=== PATIENT | male | born 1960 | race Caucasian/White ===

== ENCOUNTER 2017-08-12 06:59 | Day surgery (SDC) | payer OTHER ==
[~2017-08-12] VITALS: Ht 180.3 cm; Wt 120.2 kg
[2017-08-12] VITALS (9 sets, daily range): BP systolic 107–145; BP diastolic 68–104
[~2017-08-12 06:59] MED LIST: ASPI-999 PO; GUAI1TAB PO; HYDR-3583 PO; METO-354 PO; OMEP-10 PO; SCP1.5TD TD
[2017-08-12] MEDS ORDERED: NS IV 1000 ML 1,000 ML ONE (07:12)
[2017-08-12] MEDS ORDERED: LIDOCAINE 2% VISCOUS 15 ML UDC ONE (07:12)
--- OUTSIDE RECORDS SUMMARY | 2017-08-12 07:14 | XMS REPORT | Continuity of Care Document ---
Author Author [facility] Organization [facility] Address Unknown Phone Unavailable Care Team Providers Care Landscape Architect And Planner Name Role Phone [employer] Unavailable Unavailable Problems Medications Allergies, Adverse Reactions, Alerts Immunizations Results Vital Signs Encounters Procedures Plan of Care Social History Assessment and Plan Family History Value Date Source Advance Directives Order Name Results Value Date Source
--- OUTSIDE RECORDS SUMMARY | 2017-08-12 07:15 | XMS REPORT | Continuity of Care Document ---
Author Author [facility] Organization [facility] Address Unknown Phone Unavailable Allergies Active Description Code Type Severity Reaction Onset Reported/Identified Relationship to Patient Clinical Status Yes No Known Drug Allergies [id number] Drug Allergy Unknown N/ A 05/02/2010 Medications Problems Date Dx Coded Attending Type Code Diagnosis Diagnosed By 05/10/2010 Ot 493.90 05/10/2010 Ot 560.1 05/10/2010 Ot 560.39 05/10/2010 Ot 560.81 05/10/2010 Ot 790.6 05/10/2010 Ot V64.41 01/10/2015 Ot 784.2 01/10/2015 AMANDA RUIZ, ISABELLA Kim Ot 780.54 10/16/2015 Ot 784.2 10/16/2015 AMANDA RUIZ, ISABELLA Kim Ot 780.54 10/17/2015 VIRGILIO RUIZ, CHEIKH R Ot G47.30 10/17/2015 VIRGILIO RUIZ, CHEIKH R Ot R00.2 10/17/2015 VIRGILIO RUIZ, CHEIKH R Ot R07.89 10/17/2015 VIRGILIO RUIZ, CHEIKH R Ot Z82.49 01/04/2016 SKYLAR MCCULLOUGH DO Ot G47.33 OBSTRUCTIVE SLEEP APNEA (ADULT) (PEDIATR 01/11/2016 SKYLAR MCCULLOUGH DO Ot G47.33 OBSTRUCTIVE SLEEP APNEA (ADULT) (PEDIATR Procedures Results Encounters ACCT No. Visit Date/Time Discharge Status Pt. Type Provider Facility Loc./Unit Complaint [id number] 01/03/2016 19:59:00 2015 06:15:00 DIS Outpatient SKYLAR MCCULLOUGH DO [facility] SLEEP [id number] 03/04/2013 18:04:00 2012 23:59:59 CLS Outpatient ISABELLA PATEL MD [facility] SLEEP [id number] 08/12/2017 09:00:00 PEN Preadmit SANTINO RUIZ FACLUCA Garcia FACP CCDS [facility] CATH ATRIAL FIBRILLATION;CHRONIC ANTICOAGULATION;NATHALIA [id number] 10/16/2015 12:04:00 ACT Inpatient CHEIKH POOLE MD [facility] CSD [id number] 01/10/2015 17:52:00 Document Registration [id number] 02/25/2011 07:48:00 Document Registration [id number] 05/02/2010 02:01:00 Document Registration
[2017-08-12 07:31] LABS: MEAN PLATELET VOLUME 9.6 FL (7.4-10.4); RED BLOOD COUNT 5.42 10^6/uL (4.35-5.85); RED CELL DISTRIBUTION WIDTH 12.8 % (10.0-14.5); WHITE BLOOD COUNT 7.4 10^3/uL (4.3-11.0)
[2017-08-12] MEDS ORDERED: DILT240C86 PO (07:35)
[2017-08-12] MEDS ORDERED: APIX5TAB PO (07:35)
[2017-08-12 07:41] LABS: PROTHROMBIN TIME PATIENT 13.2 SEC (12.2-14.7)
[2017-08-12] MEDS ORDERED: NS IV 1000 ML 1,000 ML IV SCH (07:45)
[2017-08-12 07:51] LABS: ALBUMIN 4.2 GM/DL (3.2-4.5); BILIRUBIN,TOTAL 0.7 MG/DL (0.1-1.0); CALCIUM 9.4 MG/DL (8.5-10.1); CREATININE SERUM 1.25 MG/DL (0.60-1.30); POTASSIUM 4.3 MMOL/L (3.6-5.0); TOTAL PROTEIN 6.9 GM/DL (6.4-8.2)
[2017-08-12] MEDS ORDERED: proPOfol 200 MG/20 ML (DIPRIVAN) VIAL IV ONE (08:07)
[2017-08-12] MEDS ORDERED: fentaNYL INJECTION 100 MCG/2 ML AMP ONE (08:07)
[2017-08-12] MEDS ORDERED: MIDAZOLAM 2 MG/2 ML (VERSED) VIAL ONE (08:08)
[2017-08-12] MEDS ORDERED: INFLUENZA TRIvalent 2017-2018 0.5 ML/45 MCG SYR IM ONE (08:15)
--- NOTE | 2017-08-12 08:48 | Cardiac Procedure Note-CS/ASA ---
Pre-Procedure Note Pre-Op Procedure Note H&P Reviewed The H&P was reviewed, patient examined and no changes noted. Date H&P Reviewed: Aug 12, 2017 Time H&P Reviewed: 08:48 Conscious Sedation Pre-Proced Time Reviewed: 08:48 ASA Class: 2 Airway Mallampati Classification: ([place] appropriate class) I. II. III, IV Lungs Heart ASA score ASA 1: a normal healthy patient ASA 2: a patient with a mild systemic disease (mid diabetes, controlled hypertension, obesity ASA 3: a patient with a severe systemic disease that limits activity (angina , COPD, prior Myocardial infarction) ASA 4: a patient with an incapacitating disease that is a constant threat to life (CHF, renal failure) ASA 5: a moribund patient not expected to survive 24 hrs. (ruptured aneurysm) ASA 6: a declared brain patient whose organs are being harvested. For emergent operations, add the letter E after the classification Grade 2 Sedation Plan: Analgesia, Amnesia, Plan communicated to team members, Discussed options with patient/fam, Discussed risks with patient/fam Note The patient is an appropriate candidate to undergo the planned procedure, sedation, and anesthesia. The patient immediately re-assessed prior to indication. LUCA DE MD FACP FAC CCDS Aug 12, 2017 08:48
[2017-08-12] MEDS ORDERED: PROP225C6 PO (09:30)
--- NOTE | 2017-08-12 09:32 | Progress Note-Standard ---
Standard Progress Note Progress Notes/Assess & Plan Date Seen by Provider: Aug 12, 2017 Time Seen by Provider: 09:00 Progress/Assessment & Plan consult for TONYA/ Cardioversion. pt npo> midnight. 110 mg propofol and 2 mg versed. pt tolerated procedure well. start 0900 end [id number] REGINA CORONA CRNA Aug 12, 2017 09:32
--- NOTE | 2017-08-12 09:32 | Discharge Inst-Cardiology ---
Discharge Inst-Cardiac Discharge Medications New Medications: Propafenone HCl (Propafenone HCl ER) 225 Mg Cap 225 MG PO BID, #60 CAP 5 Refills Continued Medications: Apixaban (Eliquis) 5 Mg Tablet 5 MG PO BID, TAB Diltiazem HCl (Cardizem Cd) 240 Mg Cap.er.24h 240 MG PO DAILY, CAP Discontinued Medications: Guaifenesin/Ephedrine HCl (Primatene Asthma Tablet) 1 Each Tablet 2 TAB PO BID Patient Instructions Patient Instructions: F/u with Dr Jose on 08/15/17 F/u with Dr Rodriguez re: asthma KARINA Orders-Post D/C & Referrals Pneu Vac Indicated: Yes LUCA JOSE MD FACP FAC CCDS Aug 12, 2017 09:32
--- NOTE | 2017-08-12 13:27 | OPERATIVE REPORT ---
DATE OF SERVICE: 08/12/2017 PREOPERATIVE DIAGNOSIS: Atrial fibrillation. POSTOPERATIVE DIAGNOSIS: Atrial fibrillation. PROCEDURE: External electrical cardioversion. [facility] Informed consent was obtained for transesophageal echocardiography and subsequent electrical cardioversion. Transesophageal echocardiography is reported separately. It did not indicate any significant intracardiac thrombus. Subsequently, the nurse journeyman welder administered short acting anesthesia under which we carried out electrical cardioversion. Three successive shocks given a few minutes apart were unsuccessful. The shocks were 120 joules, 150 joules, 200 joules. We also tried changing the position of the pads, but were not able to restore sinus rhythm. The patient continued to maintain atrial fibrillation. No other arrhythmia was seen. Job ID: [id number] DocumentID: [id number] Dictated Date: 08/12/2017 09:40:47 Corporate Director Date: 08/12/2017 13:27:10 Dictated By: LUCA DE MD, MA, FACP, FACC,
== END 2017-08-12 10:03 | disposition home or self-care (01) ==
LOC: CATH 06:59
PROVIDERS: ATTEND Internal Medicine Cardiovascular Disease
DX: I48.0 Paroxysmal atrial fibrillation (principal); Z79.899 Other long term (current) drug therapy; G47.33 Obstructive sleep apnea (adult) (pediatric); R06.83 Snoring
CPT/HCPCS: 36415; 80053; 80061; 85027; 85610; 85730; 87081; 92960; 93005; 93312; 93320; 93325

== ENCOUNTER 2017-08-26 07:02 | Day surgery (SDC) | payer OTHER ==
[~2017-08-26] VITALS: Ht 180.3 cm; Wt 120.2 kg
[2017-08-26] VITALS (9 sets, daily range): BP systolic 117–137; BP diastolic 72–112
[~2017-08-26 07:02] MED LIST changes: +APIX5TAB PO; +DILT240C86 PO; +PROP225C6 PO
--- OUTSIDE RECORDS SUMMARY | 2017-08-26 07:05 | XMS REPORT | Continuity of Care Document ---
Author Author [employer] Organization [facility] Address Unknown Phone Unavailable Care Team Providers Care Chummer Name Role Phone [employer] Unavailable Unavailable Problems Medications Allergies, Adverse Reactions, Alerts Immunizations Results Vital Signs Encounters Procedures Plan of Care Social History Assessment and Plan Family History Value Date Source Advance Directives Order Name Results Value Date Source
--- OUTSIDE RECORDS SUMMARY | 2017-08-26 07:05 | XMS REPORT | Continuity of Care Document ---
Author Author [facility] Organization [facility] Address Unknown Phone Unavailable Allergies Active Description Code Type Severity Reaction Onset Reported/Identified Relationship to Patient Clinical Status Yes No Known Drug Allergies [id number] Drug Allergy Unknown N/A 05/02/2010 Medications There is no data. Problems Date Dx Coded Attending Type Code Diagnosis Diagnosed By 05/10/2010 Ot 493.90 05/10/2010 Ot 560.1 05/10/2010 Ot 560.39 05/10/2010 Ot 560.81 05/10/2010 Ot 790.6 05/10/2010 Ot V64.41 01/10/2015 Ot 784.2 01/10/2015 AMANDA RUIZ, ISABELLA Kim Ot 780.54 10/16/2015 Ot 784.2 10/16/2015 ISABELLA PATEL MD Ot 780.54 10/17/2015 VIRGILIO RUIZ, CHEIKH R Ot G47.30 SLEEP APNEA, UNSPECIFIED 10/17/2015 VIRGILIO RUIZ, CHEIKH R Ot R00.2 PALPITATIONS 10/17/2015 VIRGILIO RUIZ, CHEIKH R Ot R07.89 OTHER CHEST PAIN 10/17/2015 VIRGILIO RUIZ, CHEIKH R Ot Z82.49 FAMILY HX OF ISCHEM HEART DIS AND OTH DI 01/04/2016 SKYLAR MCCULLOUGH DO Ot G47.33 OBSTRUCTIVE SLEEP APNEA (ADULT) (PEDIATR 01/11/2016 SKYLAR MCCULLOUGH DO Ot G47.33 OBSTRUCTIVE SLEEP APNEA (ADULT) (PEDIATR 08/18/2017 SANTINO RUIZ FACC, LUCA ORTEGAP CCDS Ot G47.33 OBSTRUCTIVE SLEEP APNEA (ADULT) (PEDIATR 08/18/2017 SANTINO RUIZ FACC, LUCA ORTEGAP CCDS Ot I48.0 PAROXYSMAL ATRIAL FIBRILLATION 08/18/2017 SANTINO RUIZ FACC, LUCA ORTEGAP CCDS Ot R06.83 SNORING 08/18/2017 SANTINO RUIZ FACC, LUCA ORTEGAP CCDS Ot Z79.899 OTHER [facility] (CURRENT) DRUG THERAPY Procedures There is no data. Results Test Result Range Automated blood complete blood count (hemogram) panel - 08/12/17 07:24 Blood leukocytes automated count (number/volume) 7.4 10*3/uL 4.3-11.0 Blood erythrocytes automated count (number/volume) 5.42 10*6/uL 4.35-5.85 Venous blood hemoglobin measurement (mass/volume) 17.1 g/dL 13.3-17.7 Blood hematocrit (volume fraction) 49 % 40-54 Automated erythrocyte mean corpuscular volume 91 [foz_us] 80-99 Automated erythrocyte mean corpuscular hemoglobin (mass per erythrocyte) 32 pg 25-34 Automated erythrocyte mean corpuscular hemoglobin concentration measurement ( mass/volume) 35 g/dL 32-36 Automated erythrocyte distribution width ratio 12.8 % 10.0-14.5 Automated blood platelet count (count/volume) 204 10*3/uL 130-400 Automated blood platelet mean volume measurement 9.6 [foz_us] 7.4-10.4 PT panel in platelet poor plasma by coagulation assay - 08/12/17 07:24 Prothrombin time (PT) in platelet poor plasma by coagulation assay 13.2 s 12.2-14.7 INR in platelet poor plasma or blood by coagulation assay 1.0 0.8-1.4 Activated partial thromboplastin time (aPTT) in platelet poor plasma bycoagulation assay - 08/12/17 07:24 Activated partial thromboplastin time (aPTT) in platelet poor plasma bycoagulation assay 34 s 24-35 Comprehensive metabolic panel - 08/12/17 07:24 Serum or plasma sodium measurement (moles/volume) 140 mmol/L 135-145 Serum or plasma potassium measurement (moles/volume) 4.3 mmol/L 3.6-5.0 Serum or plasma chloride measurement (moles/volume) 104 mmol/L 98-107 Carbon dioxide 27 mmol/L 21-32 Serum or plasma anion gap determination (moles/volume) 9 mmol/L 5-14 Serum or plasma urea nitrogen measurement (mass/volume) 20 mg/dL 7-18 Serum or plasma creatinine measurement (mass/volume) 1.25 mg/dL 0.60-1.30 Serum or plasma urea nitrogen/creatinine mass ratio 16 NRG Serum or plasma creatinine measurement with calculation of estimated glomerular filtration rate 60 NRG Serum or plasma glucose measurement (mass/volume) 131 mg/dL 70-105 Serum or plasma calcium measurement (mass/volume) 9.4 mg/dL 8.5-10.1 Serum or plasma total bilirubin measurement (mass/volume) 0.7 mg/dL 0.1-1.0 Serum or plasma alkaline phosphatase measurement (enzymatic activity/volume) 80 U/L 40-136 Serum or plasma aspartate aminotransferase measurement (enzymatic activity/ volume) 19 U/L 5-34 Serum or plasma alanine aminotransferase measurement (enzymatic activity/volume ) 25 U/L 0-55 Serum or plasma protein measurement (mass/volume) 6.9 g/dL 6.4-8.2 Serum or plasma albumin measurement (mass/volume) 4.2 g/dL 3.2-4.5 Lipid 1996 panel - 08/12/17 07:24 Serum or plasma triglyceride measurement (mass/volume) 109 mg/dL <150 Serum or plasma cholesterol measurement (mass/volume) 162 mg/dL < 200 Serum or plasma cholesterol in HDL measurement (mass/volume) 45 mg/ dL 40-60 Cholesterol in LDL [mass/volume] in serum or plasma by direct assay 97 mg/dL 1-129 Serum or plasma cholesterol in VLDL measurement (mass/volume) 22 mg/ dL 5-40 Methicillin resistant Staphylococcus aureus (MRSA) screening culture - 07:24 Methicillin resistant Staphylococcus aureus (MRSA) screening culture NEG NRG Encounters ACCT No. Visit Date/Time Discharge Status Pt. Type Provider Facility Loc./Unit Complaint [id number] 08/21/2017 08:41:00 08/21/2017 23:59:59 CLS Preadmit SOL BEVERLY DO [facility] RAD M81.0 [id number] 08/12/2017 06:59:00 08/12/2017 10:03:00 DIS Outpatient SANTINO RUIZ FACC, LUCA FRASER CCDS [facility] CATH ATRIAL FIBRILLATION;CHRONIC ANTICOAGULATION;NATHALIA [id number] 01/03/2016 19:59:00 01/04/2016 06:15:00 DIS Outpatient SKYLAR MCCULLOUGH DO [facility] SLEEP SNORING,EXCESSIVE SLEEPINESS, [id number] 03/04/2013 18:04:00 03/04/2013 23:59:59 CLS Outpatient AMANDA RUIZ, ISABELLA Kim [facility] SLEEP [id number] 08/26/2017 07:02:00 ACT Outpatient SANTINO RUIZ FACC, LUCA FRASER CCDS [facility] CATH SOB,HTN,OBESITY [id number] 10/16/2015 12:04:00 ACT Inpatient VIRGILIO RUIZ, CHEIKH Sutton [facility] CSD CHEST PAIN [id number] 01/10/2015 17:52:00 Document Registration [id number] 02/25/2011 07:48:00 Document Registration [id number] 05/02/2010 02:01:00 Document Registration
[2017-08-26] MEDS ORDERED: NS IV 1000 ML 1,000 ML ONE (07:08)
[2017-08-26 07:27] LABS: MEAN PLATELET VOLUME 9.8 FL (7.4-10.4); RED BLOOD COUNT 5.58 10^6/uL (4.35-5.85); RED CELL DISTRIBUTION WIDTH 12.9 % (10.0-14.5); WHITE BLOOD COUNT 8.3 10^3/uL (4.3-11.0)
[2017-08-26] MEDS ORDERED: NS IV 1000 ML 1,000 ML IV SCH (07:30)
[2017-08-26 07:37] LABS: PROTHROMBIN TIME PATIENT 13.6 SEC (12.2-14.7)
[2017-08-26 07:47] LABS: ALANINE AMINOTRANSFERASE 27 U/L (0-55); ALBUMIN 4.4 GM/DL (3.2-4.5); ANION GAP 10 MMOL/L (5-14); ASPARTATE AMINO TRANSFERASE 21 U/L (5-34); BILIRUBIN,TOTAL 0.6 MG/DL (0.1-1.0); BLOOD UREA NITROGEN 20 MG/DL (7-18); BUN/CREATININE RATIO 17; CARBON DIOXIDE 24 MMOL/L (21-32); CHLORIDE 104 MMOL/L (98-107); CHOLESTEROL 177 MG/DL (< 200); CREATININE SERUM 1.17 MG/DL (0.60-1.30); DIRECT LDL 110 MG/DL (1-129); GFR ESTIMATED > 60; GLUCOSE 133 MG/DL (70-105); POTASSIUM 4.3 MMOL/L (3.6-5.0); SODIUM 138 MMOL/L (135-145); TOTAL PROTEIN 7.2 GM/DL (6.4-8.2); TRIGLYCERIDES 129 MG/DL (<150); VLDL CHOLESTEROL 26 MG/DL (5-40)
[2017-08-26] MEDS ORDERED: MIDAZOLAM 2 MG/2 ML (VERSED) VIAL ONE (08:12)
[2017-08-26] MEDS ORDERED: proPOfol 200 MG/20 ML (DIPRIVAN) VIAL IV ONE ×2 (08:12→08:13)
[2017-08-26] MEDS ORDERED: MIDAZOLAM 5 MG/5 ML (VERSED) VIAL ONE (08:13)
[2017-08-26] MEDS ORDERED: fentaNYL INJECTION 100 MCG/2 ML AMP ONE (08:13)
[2017-08-26] MEDS ORDERED: INFLUENZA TRIvalent 2017-2018 0.5 ML/45 MCG SYR IM ONE (08:30)
[2017-08-26] MEDS ORDERED: PROP325C4 PO (09:21)
--- NOTE | 2017-08-26 13:27 | Cardiac Procedure Note-CS/ASA ---
Pre-Procedure Note Pre-Op Procedure Note H&P Reviewed The H&P was reviewed, patient examined and no changes noted. Date H&P Reviewed: Aug 26, 2017 Time H&P Reviewed: 08:35 Conscious Sedation Pre-Proced Time Reviewed: 08:35 ASA Class: 2, 3 Airway Mallampati Classification: ([place] appropriate class) I. II. III, IV Lungs Heart ASA score ASA 1: a normal healthy patient ASA 2: a patient with a mild systemic disease (mid diabetes, controlled hypertension, obesity ASA 3: a patient with a severe systemic disease that limits activity (angina , COPD, prior Myocardial infarction) ASA 4: a patient with an incapacitating disease that is a constant threat to life (CHF, renal failure) ASA 5: a moribund patient not expected to survive 24 hrs. (ruptured aneurysm) ASA 6: a declared brain patient whose organs are being harvested. For emergent operations, add the letter E after the classification Grade 3 Sedation Plan: Analgesia, Amnesia, Plan communicated to team members, Discussed options with patient/fam, Discussed risks with patient/fam Note The patient is an appropriate candidate to undergo the planned procedure, sedation, and anesthesia. The patient immediately re-assessed prior to indication. LUCA DE MD FACP FAC CCDS Aug 26, 2017 13:27
--- NOTE | 2017-08-26 14:40 | OPERATIVE REPORT ---
DATE OF SERVICE: 08/26/2017 ELECTROCARDIOVERSION [facility] Short-acting anesthesia was administered by the anesthesiologist. We tried three synchronized shocks at 120 joules, 150 joules, 150 joules (with the change of orientation of the shocking pads), but we were unsuccessful in restoring sinus rhythm. The plan is to increase the dose of propafenone. He remains on oral anticoagulation without any interruption for several weeks and that has been continued. I have spoken with Dr. Dominguez of the electrophysiology service at [facility] regarding possible ablation. Dr. Dominguez will schedule the patient for evaluation of atrial fibrillation ablation. Job ID: [id number] DocumentID: [id number] Dictated Date: 08/26/2017 08:53:46 Tool Repair Technician Date: 08/26/2017 14:40:08 Dictated By: LUCA DE MD, MA, FACP, FACC, MTDD
--- NOTE | 2017-08-26 16:36 | Progress Note-Standard ---
Standard Progress Note Progress Notes/Assess & Plan Date Seen by Provider: Aug 26, 2017 Time Seen by Provider: 08:30 Progress/Assessment & Plan Anesthesia Note ([id number]) Called to lab animal technician for sedation (MAC) for cardioversion. Pt S/E. Versed 2 mg IV and Propofol 80 mg IV given in divided doses. VSS throughout and EtCO2 monitored throughout. Pt did not return to sinus rhythm after multiple cardioversion attempts.Pt tolerated the procedure well. Will be available if needed. STORMY HERNANDEZ DO Aug 26, 2017 16:36
== END 2017-08-26 09:54 | disposition home or self-care (01) ==
LOC: CATH 07:02
PROVIDERS: ATTEND Internal Medicine Cardiovascular Disease
DX: I47.2 Ventricular tachycardia (principal); I65.23 Occlusion and stenosis of bilateral carotid arteries; I25.10 Atherosclerotic heart disease of native coronary artery without angina pectoris; E78.4 Other hyperlipidemia
CPT/HCPCS: 36415; 80053; 80061; 85027; 85610; 85730; 87081; 92960; 93005

== ENCOUNTER 2017-09-04 07:06 | Day surgery (SDC) | payer OTHER ==
[~2017-09-04] VITALS: Ht 180.3 cm; Wt 120.2 kg
[~2017-09-04 07:06] MED LIST changes: +PROP325C4 PO
--- OUTSIDE RECORDS SUMMARY | 2017-09-04 07:11 | XMS REPORT | Encounter Summary ---
Author Author [facility] Organization [facility] Address Unknown Phone Unavailable Care Team Providers Care Mica Washer Gluer Name Role Phone PCP Unavailable Reason for Visit * Reason Comments Records Request Dr. Jessica Jose Encounter Details Date Type Department Care Team Description 08/26/2017 Documentation [facility] Cardiology Cristina Hines, CHARANJIT Records Request (Dr. Lopez [address] [facility] [address] Jose) [facility] [address] [place] [address] Social History Tobacco Use Types Packs/Day Years Used Date Never Assessed Sex Assigned at Date Recorded Not on file as of this encounter Progress Notes * Cristina Hines RN - 08/26/2017 9:53 AM CHEMICAL MAKER Request for the following medical records for purpose of continuity of care: Has an appointment with [facility] on 09/18/2016 Please send most recent OV note, EKGs and lab results. Please include ECHO, stress test, Holter monitor results with ECG strips and any other cardiac information / testing if available. Please also include facesheet and insurance information. Please Fax to: [facility] Cardiology - [phone] Dr. Dominguez Attention: Val Rodriguez RN Thank you in this encounter Plan of Treatment Not on fileas of this encounter Visit Diagnoses Not on filein this encounter
--- OUTSIDE RECORDS SUMMARY | 2017-09-04 07:11 | XMS REPORT | Encounter Summary ---
Author Author [facility] Organization [facility] Address Unknown Phone Unavailable Care Team Providers Care Art Educator Name Role Phone PCP Unavailable Reason for Visit * Reason Comments Referral Dr. Lemon referral to [facility] for AF Encounter Details Date Type Department Care Team Description 08/26/2017 Telephone [facility] Cardiology Kvng Dominguez MD Referral (Dr. Lemon [address] [facility] referral to [facility] for AF) [address] [place] [address] [place] [address] [phone] Social History Tobacco Use Types Packs/Day Years Used Date Never Assessed Sex Assigned at Date Recorded Not on file as of this encounter Miscellaneous Notes * Telephone Encounter - Cristina Hines RN - 08/26/2017 9:51 AM CONTINUITY PERSON Kolby Rea is a 56-year-old patient that was referred by Dr. Jessica Jose from [facility] who has a history of atrial fibrillation, sleep apnea, mild obesity. The duration of the patient's AFIB on presentation which was a few months ago is on now. Dr. Jose saw him for evaluation he initiated rate control and anticoagulation. He then pursued TONYA guided cardioversion. The patient had evangelical of sinus rhythm very briefly in the recurrence of AFIB. Dr. Jose initiated him on Rythmol (? 225 mg twice daily) and after 10 days proceeded with repeat cardioversion. Dr. Jose reported that for roughly a few seconds he had sinus rhythm and then again went back in atrial fibrillation. That prompted EP referral. Upon discussion with Dr. Jose today, 08/26/17, rather than switch to a different antiarrhythmic drug we decided to increase his Rythmol to 325 mg SR twice daily and repeat cardioversion again in 7-10 days later. I will also work in the patient for office visit either on 09/18 in the morning, 09/23 in the morning with a follow or if not in the afternoon, on the morning of 09/26. I informed Dr. Jose to let the patient know that all that we try and see his patients in the [place] office to get him worked in earlier he will need to be seen at the [facility] office. We will contact the patient today to hopefully schedule the appointment. The patient's phone number is [phone]. The patient's 's name is Jami and her phone number is [phone]. in this encounter Plan of Treatment Not on fileas of this encounter Visit Diagnoses Not on filein this encounter
--- OUTSIDE RECORDS SUMMARY | 2017-09-04 07:11 | XMS REPORT | Encounter Summary ---
Author Author [facility] Organization [facility] Address Unknown Phone Unavailable Care Team Providers Care Outsole Molder Name Role Phone PCP Unavailable Reason for Visit * Reason Comments Records Request Dr. Arturo Means Encounter Details Date Type Department Care Team Description 08/27/2017 Documentation [facility] Cardiology Cristina Hines, CHARANJIT Records Request ( [address]) [facility] [address] [place] [address] Social History Tobacco Use Types Packs/Day Years Used Date Never Assessed Sex Assigned at Date Recorded Not on file as of this encounter Progress Notes * Cristina Hines RN - 08/27/2017 9:44 AM TOBACCO WEIGHER Request for the following medical records for purpose of continuity of care: Has an appointment with [facility] on 09/18/16 Please send most recent OV note and labs. Please Fax to: [facility] - [phone] Dr. Dominguez Attention: Val Browne RN Thank you in this encounter Plan of Treatment Not on fileas of this encounter Visit Diagnoses Not on filein this encounter
--- OUTSIDE RECORDS SUMMARY | 2017-09-04 07:11 | XMS REPORT | Clinical Summary ---
Author Author [facility] Organization [facility] Address Unknown Phone Unavailable Care Team Providers Care Physical Laboratory Assistant Name Role Phone PCP Unavailable Source Comments Some departments are not documenting in the electronic medical record. If you do not see the information that you expected, contact Release of Information in the Health Information Management department at [phone] for further assistance in locating additional records.[facility] Allergies Not on File Current Medications Not on file Active Problems Not on file Encounters Date Type Specialty Care Team Description 08/27/2017 Documentation Cardiology Cristina Hines RN Records Request (Dr. Arturo Means) 08/26/2017 Documentation Cardiology Cristina Hines RN Records Request (Dr. Jessica Jose) 08/26/2017 Telephone Cardiology Cristina Hines RN Appointment Request (LM requesting CB) 08/26/2017 Telephone Cardiology Kvng Dominguez MD Referral (Dr. Lemon referral to E for AF) from Last 3 Months Social History Tobacco Use Types Packs/Day Years Used Date Never Assessed Sex Assigned at Date Recorded Not on file Last Filed Vital Signs Not on file Plan of Treatment Health Maintenance Due Date Last Done Comments HEPATITIS C SCREENING 1960 PHYSICAL (COMPREHENSIVE) 1967 EXAM PERTUSSIS VACCINE 1971 TETANUS VACCINE 1977 COLORECTAL CANCER 2010 SCREENING INFLUENZA VACCINE 04/08/2017 Results Not on filefrom Last 3 Months
--- OUTSIDE RECORDS SUMMARY | 2017-09-04 07:11 | XMS REPORT | Encounter Summary ---
Author Author [facility] Organization [facility] Address Unknown Phone Unavailable Care Team Providers Care Teacher Associate Name Role Phone PCP Unavailable Reason for Visit * Reason Comments Appointment Request LM requesting CB Encounter Details Date Type Department Care Team Description 08/26/2017 Telephone [facility] Cardiology Cristina Hines, CHARANJIT Appointment Request ([facility] [address] requesting CB) [address] [place] [address] Social History Tobacco Use Types Packs/Day Years Used Date Never Assessed Sex Assigned at Date Recorded Not on file as of this encounter Miscellaneous Notes * Telephone Encounter - Cristina Hines RN - 08/26/2017 9:52 AM BEATER ENGINEER HELPER [facility] requesting CB regarding referral to [facility]. 1.) OV scheduled with [facility] at on 09/18 at 1030. (if that does not work for patient, 09/23 in am or 09/26 at 1030 - OK if still available) 2.) PCP? 3.) Transfer to scheduling to provide additional info (address / insurance) in this encounter Plan of Treatment Not on fileas of this encounter Visit Diagnoses Not on filein this encounter
--- OUTSIDE RECORDS SUMMARY | 2017-09-04 07:12 | XMS REPORT | Continuity of Care Document ---
Author Author [facility] Organization [facility] Address Unknown Phone Unavailable Allergies Active Description Code Type Severity Reaction Onset Reported/Identified Relationship to Patient Clinical Status Yes No Known Drug Allergies [id number] Drug Allergy Unknown N/A 05/02/2010 Medications There [...] Ot G47.33 OBSTRUCTIVE SLEEP APNEA (ADULT) (PEDIATR 08/12/2017 SANTINO RUIZ FACC, LUCA FRASER CCDS Ot G47.33 OBSTRUCTIVE SLEEP APNEA (ADULT) (PEDIATR 08/12/2017 SANTINO RUIZ FACC, LUCA FRASER CCDS Ot I48.0 PAROXYSMAL ATRIAL FIBRILLATION 08/12/2017 SANTINO RUIZ FACC, LUCA FRASER CCDS Ot R06.83 SNORING 08/12/2017 SANTINO RUIZ FACC, LUCA ORTEGAP CCDS Ot Z79.899 OTHER FDC (CURRENT) DRUG THERAPY 08/18/2017 SANTINO RUIZ FACC, LUCA FRASER CCDS Ot G47.33 OBSTRUCTIVE SLEEP APNEA (ADULT) (PEDIATR 08/18/2017 SANTINO RUIZ FACC, LUCA FRASER CCDS Ot I48.0 PAROXYSMAL ATRIAL FIBRILLATION 08/18/2017 SANTINO RUIZ FACC, [facility] Ot R06.83 SNORING 08/18/2017 SANTINO RUIZ FACC, LUCA [facility] Ot Z79.899 OTHER INDEXER (CURRENT) DRUG THERAPY Procedures There is no [...] Staphylococcus aureus (MRSA) screening culture NEG NRG Automated blood complete blood count (hemogram) panel - 08/26/17 07:20 Blood leukocytes automated count (number/volume) 8.3 10*3/uL 4.3-11.0 Blood erythrocytes automated count (number/volume) 5.58 10*6/uL 4.35-5.85 Venous blood hemoglobin measurement (mass/volume) 17.6 g/dL 13.3-17.7 Blood hematocrit (volume fraction) 50 % 40-54 Automated erythrocyte mean corpuscular volume 89 [foz_us] 80-99 Automated erythrocyte mean corpuscular hemoglobin (mass per erythrocyte) 32 pg 25-34 Automated erythrocyte mean corpuscular hemoglobin concentration measurement ( mass/volume) 35 g/dL 32-36 Automated erythrocyte distribution width ratio 12.9 % 10.0-14.5 Automated blood platelet count (count/volume) 220 10*3/uL 130-400 Automated blood platelet mean volume measurement 9.8 [foz_us] 7.4-10.4 PT panel in platelet poor plasma by coagulation assay - 08/26/17 07:20 Prothrombin time (PT) in platelet poor plasma by coagulation assay 13.6 s 12.2-14.7 INR in platelet poor plasma or blood by coagulation assay 1.0 0.8-1.4 Activated partial thromboplastin time (aPTT) in platelet poor plasma bycoagulation assay - 08/26/17 07:20 Activated partial thromboplastin time (aPTT) in platelet poor plasma bycoagulation assay 33 s 24-35 Comprehensive metabolic panel - 08/26/17 07:20 Serum or plasma sodium measurement (moles/volume) 138 mmol/L 135-145 Serum or plasma potassium measurement (moles/volume) 4.3 mmol/L 3.6-5.0 Serum or plasma chloride measurement (moles/volume) 104 mmol/L 98-107 Carbon dioxide 24 mmol/L 21-32 Serum or plasma anion gap determination (moles/volume) 10 mmol/L 5-14 Serum or plasma urea nitrogen measurement (mass/volume) 20 mg/dL 7-18 Serum or plasma creatinine measurement (mass/volume) 1.17 mg/dL 0.60-1.30 Serum or plasma urea nitrogen/creatinine mass ratio 17 NRG Serum or plasma creatinine measurement with calculation of estimated glomerular filtration rate > NRG Serum or plasma glucose measurement (mass/volume) 133 mg/dL 70-105 Serum or plasma calcium measurement (mass/volume) 10.0 mg/dL 8.5-10.1 Serum or plasma total bilirubin measurement (mass/volume) 0.6 mg/dL 0.1-1.0 Serum or plasma alkaline phosphatase measurement (enzymatic activity/volume) 95 U/L 40-136 Serum or plasma aspartate aminotransferase measurement (enzymatic activity/ volume) 21 U/L 5-34 Serum or plasma alanine aminotransferase measurement (enzymatic activity/volume ) 27 U/L 0-55 Serum or plasma protein measurement (mass/volume) 7.2 g/dL 6.4-8.2 Serum or plasma albumin measurement (mass/volume) 4.4 g/dL 3.2-4.5 Lipid 1996 panel - 08/26/17 07:20 Serum or plasma triglyceride measurement (mass/volume) 129 mg/dL <150 Serum or plasma cholesterol measurement (mass/volume) 177 mg/dL < 200 Serum or plasma cholesterol in HDL measurement (mass/volume) 44 mg/ dL 40-60 Cholesterol in LDL [mass/volume] in serum or plasma by direct assay 110 mg/dL 1-129 Serum or plasma cholesterol in VLDL measurement (mass/volume) 26 mg/ dL 5-40 Methicillin resistant Staphylococcus aureus (MRSA) screening culture - 07:20 Methicillin resistant Staphylococcus aureus (MRSA) screening culture NEG NRG Encounters ACCT No. Visit Date/Time Discharge Status Pt. Type Provider Facility Loc./Unit Complaint [id number] 08/26/2017 07:02:00 08/26/2017 09:54:00 DIS Outpatient SANTINO RUIZ FACC, LUCA FRASER CCDS [facility] SOB,HTN, OBESITY [id number] 08/21/2017 08:41:00 08/21/2017 23:59:59 CLS Preadmit SOL BEVERLY DO [facility] RAD M81.0 [id number] 08/12/2017 06:59:00 08/12/2017 10:03:00 DIS Outpatient SANTINO RUIZ FACC, LUCA FRASER CCDS [facility] ATRIAL FIBRILLATION;CHRONIC ANTICOAGULATION;NATHALIA [id number] 01/03/2016 19:59:00 01/04/2016 06:15:00 DIS Outpatient SKYLAR MCCULLOUGH DO [facility] SLEEP SNORING,EXCESSIVE SLEEPINESS, [id number] 03/04/2013 18:04:00 03/04/2013 23:59:59 CLS Outpatient ISABELLA PTAEL MD [facility] SLEEP [id number] 09/04/2017 08:00:00 PEN Preadmit SANTINO RUIZ FACC, ALI FACP CCDS [facility] CATH AFIB,SOB,HTN [id number] 10/16/2015 12:04:00 ACT Inpatient VIRGILIO RUIZ, CHEIKH Sutton [facility] CSD CHEST PAIN [id number] 01/10/2015 17:52:00 Document Registration [id number] 02/25/2011 07:48:00 Document Registration [id number] 05/02/2010 02:01:00 Document Registration
[2017-09-04] MEDS ORDERED: NS IV 1000 ML 1,000 ML IV SCH (07:15)
[2017-09-04] MEDS ORDERED: FLUT1BLS IH (07:32)
[2017-09-04 07:33] LABS: HEMOGLOBIN 16.2 G/DL (13.3-17.7); MEAN PLATELET VOLUME 9.9 FL (7.4-10.4); RED BLOOD COUNT 5.12 10^6/uL (4.35-5.85)
[2017-09-04 07:46] LABS: INR 1.1 (0.8-1.4); PROTHROMBIN TIME PATIENT 14.1 SEC (12.2-14.7)
[2017-09-04 07:56] LABS: BUN/CREATININE RATIO 18; CARBON DIOXIDE 22 MMOL/L (21-32); CHLORIDE 106 MMOL/L (98-107); CREATININE SERUM 1.19 MG/DL (0.60-1.30); POTASSIUM 4.1 MMOL/L (3.6-5.0); SODIUM 139 MMOL/L (135-145)
[2017-09-04 07:57] LABS: ALANINE AMINOTRANSFERASE 28 U/L (0-55); ALBUMIN 4.1 GM/DL (3.2-4.5); ALKALINE PHOSPHATASE 87 U/L (40-136); BILIRUBIN,TOTAL 0.5 MG/DL (0.1-1.0); GFR ESTIMATED > 60; GLUCOSE 131 MG/DL (70-105); TOTAL PROTEIN 6.5 GM/DL (6.4-8.2)
[2017-09-04] MEDS ORDERED: MIDAZOLAM 5 MG/5 ML (VERSED) VIAL ONE (08:13)
[2017-09-04] MEDS ORDERED: proPOfol 200 MG/20 ML (DIPRIVAN) VIAL IV ONE (08:13)
[2017-09-04 08:23] VITALS: BP 132/112
[2017-09-04 08:28] VITALS: BP 138/98
[2017-09-04] MEDS ORDERED: INFLUENZA TRIvalent 2017-2018 0.5 ML/45 MCG SYR IM ONE (08:30)
[2017-09-04 08:36] VITALS: BP 123/82
--- NOTE | 2017-09-04 08:47 | OPERATIVE REPORT ---
DATE OF SERVICE: 09/04/2017 PREOPERATIVE DIAGNOSIS: Atrial fibrillation. POSTOPERATIVE DIAGNOSIS: Transient sinus rhythm converting back to atrial fibrillation. PROCEDURE: External electrical cardioversion. The patient is a 56-year-old gentleman who was in atrial fibrillation and previous attempts at electrocardioversion have been unsuccessful. He has been on oral propafenone and external electrical cardioversion was attempted again today. He has also been on apixaban continuously for several weeks. After having obtained informed consent, short acting anesthesia was provided by the nurse cheese maker. We gave 150 joules synchronized shock which restored sinus rhythm, but only for a couple of minutes. The patient went into atrial fibrillation again. We did not attempt further shocks because, in the past, multiple shocks have not been successful in keeping him in sinus rhythm. Job ID: [id number] DocumentID: [id number] Dictated Date: 09/04/2017 08:33:38 Drill Punch Operator Date: 09/04/2017 08:46:51 Dictated By: LUCA DE MD, MA, FACP, FACC,
[2017-09-04 09:02] VITALS: BP 132/86
--- NOTE | 2017-09-04 11:26 | Cardiac Procedure Note-CS/ASA ---
Pre-Procedure Note Pre-Op Procedure Note H&P Reviewed The H&P was reviewed, patient examined and no changes noted. Date H&P Reviewed: Sep 04, 2017 Time H&P Reviewed: 08:20 Conscious Sedation Pre-Proced Time Reviewed: 08:20 ASA Class: 2 Airway Mallampati Classification: ([place] appropriate class) I. II. III, IV Lungs Heart ASA score ASA 1: a normal healthy patient ASA 2: a patient with a mild systemic disease (mid diabetes, controlled hypertension, obesity ASA 3: a patient with a severe systemic disease that limits activity (angina , COPD, prior Myocardial infarction) ASA 4: a patient with an incapacitating disease that is a constant threat to life (CHF, renal failure) ASA 5: a moribund patient not expected to survive 24 hrs. (ruptured aneurysm) ASA 6: a declared brain patient whose organs are being harvested. For emergent operations, add the letter E after the classification Grade 3 Sedation Plan: Analgesia, Amnesia, Plan communicated to team members, Discussed options with patient/fam, Discussed risks with patient/fam Note The patient is an appropriate candidate to undergo the planned procedure, sedation, and anesthesia. The patient immediately re-assessed prior to indication. LUCA DE MD FACP FAC CCDS Sep 04, 2017 11:26
--- NOTE | 2017-09-04 14:17 | Progress Note-Standard ---
Standard Progress Note Progress Notes/Assess & Plan Date Seen by Provider: Sep 04, 2017 Time Seen by Provider: 08:15 Final Diagnosis Consulted for sedation during cardioversion. History obtained, supplies gathered. Propofol 40 mg IV krupa procedure well VSS. Report to RN care assumed. SOCO WEI CRNA Sep 04, 2017 14:17
== END 2017-09-04 09:04 | disposition home or self-care (01) ==
LOC: CATH 07:06
PROVIDERS: ATTEND Internal Medicine Cardiovascular Disease
DX: I48.91 Unspecified atrial fibrillation (principal); G47.33 Obstructive sleep apnea (adult) (pediatric); E66.9 Obesity, unspecified; Z68.37 Body mass index [BMI] 37.0-37.9, adult; Z79.01 Long term (current) use of anticoagulants; Z79.899 Other long term (current) drug therapy; Z23 Encounter for immunization
CPT/HCPCS: 36415; 80053; 85027; 85610; 85730; 87081; 92960; 93005

== ENCOUNTER → 2017-09-15 | Outpatient (CLI) | payer OTHER ==
[~2017-09-15] MED LIST changes: +FLUT1BLS IH; +RT-ALBUTEROL SULF 2.5 MG/3 ML PRE-MIX VIAL INH ONE
== END ==
LOC: RT 07:48
PROVIDERS: ATTEND Nurse Practitioner Family
DX: J45.909 Unspecified asthma, uncomplicated (principal)
CPT/HCPCS: 94060; 94726; 94729

== ENCOUNTER → 2017-09-30 | Day surgery (SDC) | payer OTHER ==
[~2017-09-30] VITALS: Ht 180.3 cm; Wt 120.2 kg
[~2017-09-30] MED LIST changes: +NS IV 1000 ML 1,000 ML IV SCH; +NS IV 1000 ML 1,000 ML ONE; -RT-ALBUTEROL SULF 2.5 MG/3 ML PRE-MIX VIAL INH ONE
--- OUTSIDE RECORDS SUMMARY | 2017-09-30 07:23 | XMS REPORT | Continuity of Care Document ---
Author Author [facility] Organization [facility] Address Unknown Phone Unavailable Care Team Providers Care Computer Forensic Specialist Name Role Phone [employer] Unavailable Unavailable Problems Medications Allergies, Adverse Reactions, Alerts Immunizations Results Vital Signs Encounters Location Location Details Encounter Type Encounter Number Reason For Visit Attending Provider ADM Date DC Date Status Source OUTPATIENT [id number] HARLAN WEN 09/18/2017 Active [facility] O 10/08/2017 Active [facility] OUTPATIENT [id number] 10/08/2017 Active [facility] Procedures Plan of Care Social History Assessment and Plan Family History Advance Directives Functional Status
--- OUTSIDE RECORDS SUMMARY | 2017-09-30 07:24 | XMS REPORT | Encounter Summary ---
Author Author [facility] Organization [facility] Address Unknown Phone Unavailable Care Team Providers Care Quality Assurance Qa Lab Technician Name Role Phone PCP Unavailable Encounter Details Date Type Department Care Team Description 09/18/2017 Documentation [facility] Luis Looney [address] [facility] [address] [place] [address] Social History Tobacco Use Types Packs/Day Years Used Date Never Assessed Sex Assigned at Date Recorded Not on file as of this encounter Plan of Treatment Date Type Specialty Care Team Description 09/25/2017 Procedure Pass Cardiology Name Priority Associated Diagnoses Date/Time 25-OH VITAMIN D (D2 + D3) Routine 07/17/2017 12:00 AM RN NEONATAL GLUCOSE, RANDOM Routine 07/17/2017 12:00 AM RN NEONATAL ALT (SGPT) Routine 07/17/2017 12:00 AM RN NEONATAL C REACTIVE PROT-HI SENSITIVITY Routine 07/17/2017 12:00 AM RN NEONATAL CBC Routine 09/18/2017 12:00 AM RN NEONATAL COMPREHENSIVE METABOLIC PANEL Routine 09/18/2017 12:00 AM RN NEONATAL as of this encounter Visit Diagnoses Not on filein this encounter
--- OUTSIDE RECORDS SUMMARY | 2017-09-30 07:24 | XMS REPORT | Encounter Summary ---
Author Author [facility] Organization [facility] Address Unknown Phone Unavailable Care Team Providers Care Rn Transport Name Role Phone PCP Unavailable Reason for Visit * Reason Comments Records Request Dr. Jessica Jose Encounter Details Date Type Department Care Team Description 08/26/[address] [facility] Cardiology Cristina Hines, RN Records Request (Dr. Lopez [address] Jose) [facility] [address] [place] [address] Social History Tobacco Use Types Packs/Day Years Used Date Never Assessed Sex Assigned at Date Recorded Not on file as of this encounter Progress Notes * Cristina Hines, CHARANJIT - 08/26/2017 9:53 AM DOG FOOD SHREDDER OPERATOR Request for the following medical records for purpose of continuity of care: Has an appointment with [facility] on 09/18/2016 Please send most recent OV note, EKGs and lab results. Please include ECHO, stress test, Holter monitor results with ECG strips and any other cardiac information / testing if available. Please also include facesheet and insurance information. Please Fax to: [facility] Cardiology - [phone] Dr. Dominguez Attention: Val Rodriguez RN Thank you in this encounter Plan of Treatment Date Type Specialty Care Team Description 09/25/2017 Procedure Pass Cardiology as of this encounter Visit Diagnoses Not on filein this encounter
--- OUTSIDE RECORDS SUMMARY | 2017-09-30 07:24 | XMS REPORT | Encounter Summary ---
Author Author [facility] Organization [facility] Address Unknown Phone Unavailable Care Team Providers Care Collet Driller Name Role Phone PCP Unavailable Encounter Details Date Type Department Care Team Description 09/26/2017 Telephone [facility] Cardiology Val Lunsford, RN [address] [facility] [address] [place] [address] Social History Tobacco Use Types Packs/Day Years Used Date Never Assessed Sex Assigned at Date Recorded Not on file as of this encounter Plan of Treatment Date Type Specialty Care Team Description 09/25/2017 Procedure Pass Cardiology as of this encounter Visit Diagnoses Not on filein this encounter
--- OUTSIDE RECORDS SUMMARY | 2017-09-30 07:24 | XMS REPORT | Encounter Summary ---
Author Author [facility] Organization [facility] Address Unknown Phone Unavailable Care Team Providers Care Secretary To Board Of Commissioners Name Role Phone PCP Unavailable Reason for Visit * Reason Comments Referral Dr. Lemon referral to [facility] for AF Encounter Details Date Type Department Care Team Description 08/26/2017 Telephone [facility] Cardiology Kvng Dominguez MD Referral (Dr. Lemon [address] referral to [facility] for AF) [address] [place] [address] [place] [address] [phone] Social History Tobacco Use Types Packs/Day Years Used Date Never Assessed Sex Assigned at Date Recorded Not on file as of this encounter Miscellaneous Notes * Telephone Encounter - Cristina Hines RN - 08/26/2017 9:51 AM CROP PULLER Kolby Rea is a 56-year-old patient that was referred by Dr. Jessica Jose from [facility] who has a history of atrial fibrillation, sleep apnea, mild obesity. The duration of the patient's AFIB on presentation which was a few months ago is on now. Dr. Jose saw him for evaluation he initiated rate control and anticoagulation. He then pursued TONYA guided cardioversion. The patient had scientologist of sinus rhythm very briefly in the [...] try and see his patients in the [place] office to get him worked in earlier he will need to be seen at the [facility] office. We will contact the patient today to hopefully schedule the appointment. The patient's phone number is [phone]. The patient's 's name is Jami and her phone number is [phone]. in this encounter Plan of Treatment Date Type Specialty Care Team Description 09/25/2017 Procedure Pass Cardiology as of this encounter Visit Diagnoses Not on filein this encounter
--- OUTSIDE RECORDS SUMMARY | 2017-09-30 07:24 | XMS REPORT | Encounter Summary ---
Author Author [facility] Organization [facility] Address Unknown Phone Unavailable Care Team Providers Care Printing Machine Operator Tape Rules Name Role Phone PCP Unavailable Reason for Visit * Reason Comments Other CTA requested,orders placed Encounter Details Date Type Department Care Team Description 09/19/2017 Telephone [facility] Cardiology Kellie Agustin RN Other (CTA [address] requested,orders placed) [place] [address] Social History Tobacco Use Types Packs/Day Years Used Date Never Assessed Sex Assigned at Date Recorded Not on file as of this encounter Miscellaneous Notes * Telephone Encounter - Kellie Agustin RN - 09/19/2017 10:52 AM TREE FARMER ----- Message from Val Lunsford RN sent at 09/18/2017 12:38 PM TREE FARMER ----- Regarding: pre ablation ccta Dr Dominguez pre atrial fibrillation ablation (date pending) FYI his insurance changes on 10/09/17 will need PAT same day and possibly OV thx Val in this encounter Plan of Treatment Date Type Specialty Care Team Description 09/25/2017 Procedure Pass Cardiology as of this encounter Visit Diagnoses Not on filein this encounter
--- OUTSIDE RECORDS SUMMARY | 2017-09-30 07:24 | XMS REPORT | Encounter Summary ---
Author Author [facility] Organization [facility] Address Unknown Phone Unavailable Care Team Providers Care Semiconductors Wafer Breaker Name Role Phone PCP Unavailable Reason for Visit * Reason Comments Appointment Request LM requesting CB Encounter Details Date Type Department Care Team Description 08/26/2017 Telephone [facility] Cardiology Cristina Hines, CHARANJIT Appointment Request ([facility] [address] requesting CB) [address] [place] [address] Social History Tobacco Use Types Packs/Day Years Used Date Never Assessed Sex Assigned at Date Recorded Not on file as of this encounter Miscellaneous Notes * Telephone Encounter - Cristina Hines, CHARANJIT - 08/26/2017 9:52 AM SUPERVISOR BRIDGES AND BUILDINGS LM requesting CB regarding referral to [facility]. 1.) OV scheduled with [facility] at on 09/18 at 1030. (if that does not work for patient, 09/23 in am or 09/26 at 1030 - OK if still available) 2.) PCP? 3.) Transfer to scheduling to provide additional info (address / insurance) in this encounter Plan of Treatment Date Type Specialty Care Team Description 09/25/2017 Procedure Pass Cardiology as of this encounter Visit Diagnoses Not on filein this encounter
--- OUTSIDE RECORDS SUMMARY | 2017-09-30 07:24 | XMS REPORT | Encounter Summary ---
Author Author [facility] Organization [facility] Address Unknown Phone Unavailable Care Team Providers Care Analytical Clerk Name Role Phone PCP Unavailable Encounter Details Date Type Department Care Team Description 09/25/2017 Procedure Pass [facility] [address] [place] [address] Social History Tobacco Use Types Packs/Day Years Used Date Never Assessed Sex Assigned at Date Recorded Not on file as of this encounter Plan of Treatment Date Type Specialty Care Team Description 09/25/2017 Procedure Pass Cardiology as of this encounter Visit Diagnoses Not on filein this encounter
--- OUTSIDE RECORDS SUMMARY | 2017-09-30 07:24 | XMS REPORT | Clinical Summary ---
Author Author [facility] Organization [facility] Address Unknown Phone Unavailable Care Team Providers Care Call Center Director Name Role Phone PCP Unavailable Source Comments Some departments are not documenting in the electronic medical record. If you do not see the information that you expected, contact Release of Information in the Health Information Management department at [phone] for further assistance in locating additional records.[facility] Allergies Not on File Current Medications Prescription Sig. Disp. Refills Start End Date Status Date propafenone SR(+) Take 325 mg by mouth Active (RYTHMOL SR) 325 mg every 12 hours. capsule apixaban (ELIQUIS) 5 mg Take 5 mg by mouth twice Active tablet daily. fluticasone-vilanterol(+) Inhale 1 puff by mouth Active (BREO ELLIPTA) 100-25 mcg into the lungs daily. inhalation disk diltiazem CD (CARDIZEM Take 1 capsule by mouth 180 capsule 3 09/18/19 Active CD) 240 mg capsule twice daily. 18 diltiazem CD (CARTIA XT) Take 240 mg by mouth 09/18/19 Discontin 240 mg capsule daily. 18 ued Active Problems Problem Noted Date NATHALIA (obstructive sleep apnea) 09/18/2017 Overview: treated with CPAP followed by Dr Rodriguez Atrial fibrillation (HCC) 09/18/2017 Overview: 10/17/15 Echo: EF 60%, normal global LV systolic function, trivial MR and TR. no evidence of significant valvular stenosis, no significant pericardial effusion 10/17/15 MPI: no evidence of any significant myocardial ischemia or infarction. normal regional wall motion, normal global LV systolic function with calculated EF of 70%. LV cavity size 07/17/17 first diagnosis on EKG at Urgent Care 08/12/17 Dr Jose note: TONYA negative for intracardiac thrombus, Cardioversion unsuccessful - started on propafenone BPH (benign prostatic hyperplasia) 09/18/2017 Obesity 09/18/2017 Essential hypertension 09/18/2017 Encounters Date Type Specialty Care Team Description 09/26/2017 Telephone Cardiology Val Lunsford RN 09/25/2017 Orders Only Cardiology Maliha Clark RN Atrial fibrillation , unspecified type (HCC) (Primary Dx) 09/19/2017 Orders Only Cardiology Kellie Agustin RN Paroxysmal atrial fibrillation (HCC) (Primary Dx) 09/19/2017 Telephone Cardiology Kellie Agustin RN Other (CTA requested,orders placed) 09/18/2017 Office Visit Cardiology Kvng Dominguez MD New Patient ( Atrial Fibrillation, Sleep Apnea; Ref by Dr. Flannery) 09/18/2017 Documentation Cardiology Luis Looney 08/27/2017 Documentation Cardiology Cristina Hines RN Records [...] Not on file Last Filed Vital Signs Vital Sign Reading Time Taken Blood Pressure 148/86 09/18/2017 9:49 AM POLITICAL DIRECTOR Pulse 109 09/18/2017 9:49 AM POLITICAL DIRECTOR Temperature - - Respiratory Rate - - Oxygen Saturation - - Inhaled Oxygen - - Concentration Weight 127.9 kg (282 lb) 09/18/2017 9:49 AM POLITICAL DIRECTOR Height 180.3 cm (5' 11") 09/18/2017 9:49 AM POLITICAL DIRECTOR Body Mass Index 39.33 09/18/2017 9:49 AM POLITICAL DIRECTOR Plan of Treatment Date Type Specialty Care Team Description 09/25/2017 Procedure Pass Cardiology Health Maintenance Due Date Last Done Comments HEPATITIS C SCREENING 1960 PHYSICAL (COMPREHENSIVE) 1967 EXAM PERTUSSIS VACCINE 1971 TETANUS VACCINE 1977 COLORECTAL CANCER 2010 SCREENING INFLUENZA VACCINE 04/08/2017 Results Not on filefrom Last 3 Months
--- OUTSIDE RECORDS SUMMARY | 2017-09-30 07:24 | XMS REPORT | Encounter Summary ---
Author Author [facility] Organization [facility] Address Unknown Phone Unavailable Care Team Providers Care Lapel Baster Name Role Phone PCP Unavailable Reason for Referral * CTA Procedure Status Reason Specialty Diagnoses / Referred By Referred To Procedures Contact Contact No Auth Needed Cardiology Diagnoses Kvng Dominguez, Isabel Pena Nuclear Paroxysmal [address] [place] fibrillation [place], [place] ([facility]) [address] [address] [address] [place], [place] Phone: [employer] [address] [address] CARDIAC Phone: STRUCTURE WO/W [phone] CONT * CTA Procedure Status Reason Specialty Diagnoses / Referred By Referred To Procedures Contact Contact New Request Cardiology Diagnoses Kvng Dominguez, Isabel Pena Nuclear Paroxysmal [address] [place] fibrillation [place], [place] ([facility]) [address] [address] [place], [place] Phone: [employer] [address] [address] Phone: CARDIAC [phone] Encounter Details Date Type Department Care Team Description 09/19/2017 Orders Only [facility] Kellie Agustin, CHARANJIT Paroxysmal atrial [address] [place] fibrillation ([facility]) [place] [address] (Primary Dx) [phone] Social History Tobacco Use Types Packs/Day Years Used Date Never Assessed Sex Assigned at Date Recorded Not on file as of this encounter Plan of Treatment Date Type Specialty Care Team Description 09/25/2017 Procedure Pass Cardiology Name Priority Associated Diagnoses Order Schedule CT LMTD CHEST W CARDIAC Routine Paroxysmal atrial Expected: 09/19/2017 fibrillation (HCC) (Approximate), Expires: 09/19/2018 CT CARDIAC STRUCTURE WO/W CONT Routine Paroxysmal atrial Expected: 09/19 fibrillation (HCC) (Approximate), Expires: 09/19/2018 as of this encounter Visit Diagnoses Diagnosis Paroxysmal atrial fibrillation (HCC) - Primary Atrial fibrillation in this encounter
--- OUTSIDE RECORDS SUMMARY | 2017-09-30 07:24 | XMS REPORT | Encounter Summary ---
Author Author [facility] Organization [facility] Address Unknown Phone Unavailable Care Team Providers Care Digital Intern Name Role Phone PCP Unavailable Reason for Referral * CTA Procedure Status Reason Specialty Diagnoses / Referred By Referred To Procedures Contact Contact No Auth Needed Cardiology Diagnoses Kvng Dominguez Bhg Card Nuclear Atrial [address] fibrillation, [address] [place] unspecified type [place], [place] (HCC) [place] [address] [address] [address] [place], [place] Phone: [employer] [place] [phone] CARDIAC Phone: STRUCTURE WO/W [phone] CONT * CTA Procedure Status Reason Specialty Diagnoses / Referred By Referred To Procedures Contact Contact New Request Cardiology Diagnoses Kvng Dominguez Bhg Card Nuclear Atrial [address] fibrillation, [address] [place] unspecified type [place] (HCC) [place] [address] [address] [address] [place], [place] Phone: [employer] [place] [id number] [address] LMTD CHEST W Phone: CARDIAC [phone] Encounter Details Date Type Department Care Team Description 09/25/2017 Orders Only [facility] Maliha Clark, CHARANJIT Atrial fibrillation, [address] [place] unspecified type (HCC) [place] [address] (Primary Dx) [phone] Social History Tobacco Use Types Packs/Day Years Used Date Never Assessed Sex Assigned at Date Recorded Not on file as of this encounter Plan of Treatment Date Type Specialty Care Team Description 09/25/2017 Procedure Pass Cardiology Name Priority Associated Diagnoses Order Schedule CT LMTD CHEST W CARDIAC Routine Atrial fibrillation, Expected: 2017 unspecified type (HCC) (Approximate), Expires: 09/25/2018 CT CARDIAC STRUCTURE WO/W CONT Routine Atrial fibrillation, Expected: unspecified type (HCC) (Approximate), Expires: 09/25/2018 as of this encounter Visit Diagnoses Diagnosis Atrial fibrillation, unspecified type (HCC) - Primary in this encounter
--- OUTSIDE RECORDS SUMMARY | 2017-09-30 07:24 | XMS REPORT | Encounter Summary ---
Author Author [facility] Organization [facility] Address Unknown Phone Unavailable Care Team Providers Care Granulizing Machine Operator Name Role Phone PCP Unavailable Reason for Visit * Reason Comments Records Request Dr. Arturo Means Encounter Details Date Type Department Care Team Description 08/27/[address] [facility] Cardiology Cristina Hines, CHARANJIT Records Request ( [address]) [facility] [address] [place] [address] Social History Tobacco Use Types Packs/Day Years Used Date Never Assessed Sex Assigned at Date Recorded Not on file as of this encounter Progress Notes * Cristina Hines, CHARANJIT - 08/27/2017 9:44 AM NOZZLE CEMENT SPRAYER HELPER Request for the following medical records for purpose of continuity of care: Has an appointment with [facility] on 09/18/16 Please send most recent OV note and labs. Please Fax to: [facility] Cardiology - [phone] Dr. Dominguez Attention: Val Browne RN Thank you in this encounter Plan of Treatment Date Type Specialty Care Team Description 09/25/2017 Procedure Pass Cardiology as of this encounter Visit Diagnoses Not on filein this encounter
--- OUTSIDE RECORDS SUMMARY | 2017-09-30 07:24 | XMS REPORT | Encounter Summary ---
Author Author [facility] Organization [facility] Address Unknown Phone Unavailable Care Team Providers Care Preformer Impregnated Fabrics Name Role Phone PCP Unavailable Reason for Visit * Reason Comments New Patient Atrial Fibrillation, Sleep Apnea; Ref by Dr. Flannery Encounter Details Date Type Department Care Team Description 09/18/2017 Office Visit [facility] Cardiology Kvng Dominguez MD New Patient (Atrial [address] [address] Fibrillation, Sleep [place] [address] [place] [address] Apnea; [place] [address] [place] [address] Alma Delia) [phone] Social History Tobacco Use Types Packs/Day Years Used Date Never Assessed Sex Assigned at Date Recorded Not on file as of this encounter Last Filed Vital Signs Vital Sign Reading Time Taken Blood Pressure 148/86 09/18/2017 9:49 AM STAB SETTER AND DRILLER Pulse 109 09/18/2017 9:49 AM STAB SETTER AND DRILLER Temperature - - Respiratory Rate - - Oxygen Saturation - - Inhaled Oxygen - - Concentration Weight 127.9 kg (282 lb) 09/18/2017 9:49 AM STAB SETTER AND DRILLER Height 180.3 cm (5' 11") 09/18/2017 9:49 AM STAB SETTER AND DRILLER Body Mass Index 39.33 09/18/2017 9:49 AM STAB SETTER AND DRILLER in this encounter Instructions * Patient Instructions - Val Lunsford RN - 09/18/2017 10:30 AM STAB SETTER AND DRILLER will schedule you for Atrial Fibrillation Ablation using Cryotherapy see pre procedure instructions We will schedule you in the near future for your Cardiac CTA (64 slice CT Angiogram). This test is different than other more common CT(CAT) scans. Depending on your doctor's needs, we use the CTA to assess the size of your heart chambers and pulmonary veins. We can also sometimes see if you have significant coronary artery disease. Cardiac CTA does require intravenous contrast dye which some patients are allergic to or cannot tolerate due to their kidney function. In addition, we may use medications to slow your heart rate down during the procedure in order to get better pictures. We will consult with the insurance company before we perform the test to make sure you are covered. increase diltiazem 240 mg twice per day if hr less than 55 or symptoms go back [address] Jose to arrange cardioversion maurilio on return from [place] reduce diltiazem to 240 mg daily TWO days before cardioversion --Check your BP (Blood Pressure) daily and you may vary the time of day you check it. Monitor your blood pressure regularly Consider obtaining an automatic home blood pressure cuff if you don't already have one. Try to follow a low salt diet. If you smoke, make an honest effort to quit. Exercise helps with your blood pressure. Try to get at least 30 minutes of moderate intensity exercise at least 4 days a week. Your desired BP is with the top # less than 130 and bottom # less than 85. Call our office or your PCP if your blood pressure remains at or above the desired measurement consistently. If you have questions about your blood pressure readings, please contact the office. I would like you to check your pulse daily for irregularity and/or rapidity and contact our office either occurs and persists. Also keep a log of your heart rates(HR) and note if your pulse is regular(R) or irregular(I) and bring that log with you during each office visit. follow up with your sleep physician regarding correct CPAP settings in this encounter Progress Notes * Kvng Dominguez MD - 09/18/2017 10:30 AM STAB SETTER AND DRILLER Formatting of this note may be different from the original. Date of Service: 09/18/2017 Kolby Rea is a 57 y.o. male. HPI I had the pleasure of seeing your patient Kolby Rea in the [facility] as a part of the [facility] office today for initial Electrophysiolgy Consultation regarding his Persistent Atrial Fibrillation. He is typically followed and was referred by my partner Dr. Jose, his primary heading pinner. Mr. Rea is an exceptionally pleasant 57 y.o. male, who is accompanied by his equally pleasant spouse, Jami. 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 All data in this note, including the past medical history, was newly collected today. His PMHx briefly includes: Persistent Atrial Fibrillation; Normal LV Function by Echo (10/2015) by Dr. Jose; Negative Stress imaging by [facility] (10/17/15); OSAS; Mild Obesity -- 07/17/17: AFIB first noted on ECG at a work physical -- 08/08/17: OV (Dr. Jose): Pt on Diltiazem and Eliquis with plan for CVRT, no AA therapy at that time -- 08/12/17: TONYA prior to Cardioversion: Normal LV Function, no significant valvular disease noted. -- 08/12/17: TONYA-guided CVRT: Failed CVRT --> Rythmol SR 225 mg BID initiated -- 08/26/17: CVRT by Dr. Jose, on Rythmol SR 225 mg BID-->only brief NSR before ERAF -- 08/26/17: Rythmol SR increased to 325 mg BID after Failed CVRT-->Discussion with Dr. Jose and Dr. Dominguez-->rather than switch to a different antiarrhythmic drug we decided to increase his Rythmol to 325 mg SR twice daily and repeat cardioversion again in 7-10 days later. -- 09/04/17: Repeat CVRT on Rythmol 325 mg BID, only brief NSR before ERAF EP referral for refractory AFIB -- 09/18/17: Initial EP Consultation re: His refractory AFIB. He STATES his AFIB was first discovered by ECG on 07/17/17 at a routine physical with his PMD. He states that he went hunting in early July around the time of his Dx. He states he had ORTIZ and fatigue when walking around hunting after the first couple rounds. Currently, he states that he does not feel short of breath with exercise although his exercise is somewhat limited. He claims compliance with his CPAP Tx. He has not been checking his BP at home. He is taking a trip to [place] on Friday for one week. He denies any bleeding issues-blood in the urine, blood in the stool, tolerating anticoagulation without obvious issue. He denies any chest discomfort, palpitations, lightheadedness, dizziness, near syncope or syncope, PND or orthopnea. FHx, SHx and ROS documented and I have reviewed, with some pertinent features to include: +FHx of premature CAD (Mother, Brother). He is a Non-Smoker. Most pertinent ROS is included/discussed throughout the note, e.g. HPI and A/P. ASSESSMENT AND PLAN: -- Persistent Atrial Fibrillation--Refractory to Rythmol -- Normal LV Function by Echo (10/2015) -- Negative Stress imaging by [facility] (10/17/15) -- OSAS -- Moderate Obesity -- Elevated BP -- Persistent Atrial Fibrillation--Refractory to RythmolWe had a lengthy discussion regarding Atrial Fibrillation, the pathophysiology, the mechanism, and therapeutic options. We discussed what I call the 3 R's: The Rhythm being abnormal; the Rate being Rapid; and the Risk of stroke. We discussed multiple therapeutic options, including an AFIB/KATIE Ablation procedure. We discussed the procedure and risks of an AFIB/KATIE Ablation procedure to include, but not limited to, , WI, stroke, cardiac perforation, pulmonary vein stenosis, diaphragmatic paralysis via phrenic nerve injury, catheter entrapment in the mitral valve or other location, bleeding, infection, DVT, vascular injury, worsening atrial arrhythmias, and possible need for a repeat AFIB/KATIE Ablation procedure. The incidence of needing a repeat procedure is generally approximately 20%-30%. There is also a low risk of possible esophageal ulceration, vagal nerve injury, atrial esophageal fistula or atrial bronchial fistula or even possible need for major surgery to address those or another complication. We discussed that recurrent AFIB in the first 2-3 months post procedure is a part of the healing process and has no impact on the overall longer term success of the ablation and that we use an AA drug for the first 3 months post procedure to try and reduce the incidence of these events. We also discussed that the 5 year cure rate of the procedure for him is approximately 60-70% with a higher rate if a repeat procedure is done. We discussed the differences between an RFA vs Cryo-Ablation. I recommended we do a Cryo-Ablation, which he was interested in. He and his expressed verbal understanding of these details, the procedure and the risks. He wishes to proceed with a AFIB/KATIE Ablation procedure. We will therefore obtain a CT Angiogram and proceed accordingly. Today we will set up a time to do the AFIB cryoablation in the future. We will do a TONYA prior to the procedure. The procedure will be done under General Anesthesia. Post-ablation we will reinitiate AA drug therapy. Also I feel like his ventricular rate is too rapid. I therefore increased his diltiazem to 240 mg twice daily. I have asked him to monitor his heart rate closely with his new blood pressure/heart rate monitor. See details below regarding avoiding bradycardia and readjusting his diltiazem if necessary I also asked him to decrease his diltiazem back to 240 mg daily 2 days prior to his cardioversion to ensure he does not have severe sinus bradycardia post cardioversion. I would like to restore sinus rhythm if possible prior to his ablation. We discussed 2 options with regard to this. We discussed the reattempts at cardioversion on Rythmol since he has now been on it for at least a month. We reviewed his failed cardioversions to date. The other option we discussed was to stop Rythmol and initiate a different antiarrhythmic drug such as Multaq 400 mg twice daily and after 2 weeks on Multaq proceeding with cardioversion at that time. --Since he is going to [place] on Friday he will contact Dr. Jose's office he wishes to proceed with one last attempt at cardioversion on Rythmol. He realizes if that fails to maintain sinus rhythm that he was switched the Multaq and undergo yet another cardioversion. If at that point he feels maintain sinus rhythm he will continue on persistent AFIB until his ablation procedure. -- OSAS: We discussed the association between obstructive sleep apnea and AFIB and that inadequately Tx'd sleep apnea will increase the risk of recurrent AFIB and make controlling the AFIB much more difficult. Thus I emphasized the need to be strictly compliant with his CPAP, etc. And asked him to follow-up with his ladle liner regarding his CPAP settings. --Elevated BP: As noted above we are increasing his diltiazem and therefore anticipate he will have better BP control. However I have asked him to obtain a blood pressure cuff monitor. I Asked him to check his blood pressure regularly with parameters described below. PLAN: -- As described above, we will proceed with AFIB Cryo-Ablation -- We will obtain a CT Angiogram -- Increase Diltiazem to 240 mg BID -- He will go back to Diltiazem 240 mg daily prior to his CVRT to avoid any Sinus BRADYCARDIA -- He will go back to his prior dosing of Diltiazem prior to CVRT if his rates are below 55 bpm or if he has symptoms on increased Diltiazem -- He will call Dr. Jose for CVRT after [place] trip -- We will attempt repeat CVRT on Rythmol -- If this CVRT attempt is a failure, we will switch drug therapy to likely Multaq and pursue another CVRT prior to his Ablation -- He will follow up his CPAP settings -- I have asked him to obtain a BP machine and Check his BP (Blood Pressure) daily and vary the time of day he checks it and to keep a log of his HRs and BPs. -- We discussed that exercise helps with his blood pressure and he should try to get at least 30 minutes of moderate intensity exercise at least 4 days a week. -- We discussed that his desired BP is less than 135 and less than 85. -- I have asked him to check his pulse twice (AM and PM) daily for irregularity and/or rapidity and contact our office if it occurs and persists. I have asked him to keep a log including date, once a day HR, regular or irregular-- elaborating on skipped beat or AFIB. -- Since he is on anticoagulation, I have asked him to monitor for any signs or symptoms of bleeding, including blood in the stool or urine, etc and to contact his PMD if any occurs. Mr. Rea was educated regarding plan of care. He was instructed to call our office with any questions or concerns, as well as to notify us of any new or worsening symptoms. He verbalized understanding. I appreciate the opportunity to participate in the care of your patient. Please do not hesitate to contact me directly if you have any questions or further insights into his care. I have scheduled his follow-up with me in 1 month(s) post-Ablation. Vitals: 09/18/17 0949 BP: 148/86 Pulse: 109 Weight: 127.9 kg (282 lb) Height: 1.803 m (5' 11") Body mass index is 39.33 kg/(m^2). Past Medical History Patient Active Problem List Diagnosis Date Noted NATHALIA (obstructive sleep apnea) 09/18/2017 treated with CPAP followed by Dr Rodriguez Atrial fibrillation (HCC) 09/18/2017 10/17/15 Echo: EF 60%, normal global LV [...] hyperplasia) 09/18/2017 Obesity 09/18/2017 Essential hypertension 09/18/2017 Review of Systems Constitution: Negative. HENT: Negative. Eyes: Negative. Cardiovascular: Negative. Respiratory: Negative. Endocrine: Negative. Hematologic/Lymphatic: Negative. Skin: Negative. Musculoskeletal: Negative. Gastrointestinal: Negative. Genitourinary: Negative. Neurological: Negative. Psychiatric/Behavioral: Negative. Allergic/Immunologic: Negative. Physical Exam Constitutional: He is in no acute distress, resting comfortably. Skin/Integument: Warm and dry. Eyes: PERRL, sclera are non-icteric and no xanthelasmas noted. ENT: Hearing is intact, Oropharynx is clear and moist. Heme/Lym/Immun: Supple neck, without thyromegaly. Respiratory-Pulmonary/Chest: Effort normal and breath sounds normal. No respiratory distress or accessory muscle use. No obvious tracheal deviation. Clear to auscultation bilaterally. Cardiovascular: No evidence of increased jugular venous pressure, carotids are 2+/4+ equal bilaterally, without obvious bruit. Irregularly irregular rhythm, S1, S2. I do not appreciate any significant murmur today. No heaves, thrills or rubs. Musc/Skeletal-Extremities: Without significant peripheral edema. With what appears to be full ROM. Neuro: Patient is alert and oriented to person, place, and time. Psych: Patient does not appear anxious, he appears appropriate, with normal non -pressured speech and what appears to be appropriate judgement Cardiovascular Studies ECG today demonstrates AFIB at 109 bpm with IVCD-likely related to Rythmol. Problems Addressed Today Encounter Diagnoses Name Primary? Paroxysmal atrial fibrillation (HCC) Yes Essential hypertension NATHALIA (obstructive sleep apnea) Current Medications (including today's revisions) apixaban (ELIQUIS) 5 mg tablet Take 5 mg by mouth twice daily. diltiazem CD (CARDIZEM CD) 240 mg capsule Take 1 capsule by mouth twice daily. fluticasone-vilanterol(+) (BREO ELLIPTA) 100-25 mcg inhalation disk Inhale 1 puff by mouth into the lungs daily. propafenone SR(+) (RYTHMOL SR) 325 mg capsule Take 325 mg by mouth every 12 hours. Documentation recorded by Logan Zabala, acting as scribe for Kvng Dominguez M.D. in this encounter Plan of Treatment Date Type Specialty Care Team Description 09/25/2017 Procedure Pass Cardiology Name Priority Associated Diagnoses Order Schedule ECG 12-LEAD Routine Paroxysmal atrial Ordered: 09/18/2017 fibrillation (HCC) Essential hypertension NATHALIA (obstructive sleep apnea) as of this encounter Visit Diagnoses Diagnosis Paroxysmal atrial fibrillation (HCC) - Primary Atrial fibrillation Essential hypertension Unspecified essential hypertension NATHALIA (obstructive sleep apnea) Obstructive sleep apnea (adult) (pediatric) in this encounter
--- OUTSIDE RECORDS SUMMARY | 2017-09-30 07:25 | XMS REPORT | Continuity of Care Document ---
Author Author [facility] Organization [facility] Address Unknown Phone Unavailable Allergies Active Description Code Type Severity Reaction Onset Reported/Identified Relationship to Patient Clinical Status Yes No Known Drug Allergies [id number] Drug Allergy Unknown N/A 05/02/2010 Medications There [...] FACC, LUCA ORTEGAP CCDS Ot Z79.899 OTHER DIE TESTER (CURRENT) DRUG THERAPY 08/18/2017 LUCA DE MD, FACC FACP CCDS Ot G47.33 OBSTRUCTIVE SLEEP APNEA (ADULT) (PEDIATR 08/18/2017 SANTINO RUIZ FACC, ALI FACP CCDS Ot I48.0 PAROXYSMAL ATRIAL FIBRILLATION 08/18/2017 SANTINO RUIZ FACC, ALI FACP CCDS Ot R06.83 SNORING 08/18/2017 SANTINO RUIZ FACC, ALI FACP CCDS Ot Z79.899 OTHER ASSISTED (CURRENT) DRUG THERAPY 08/26/2017 SANTINO RUIZ FACC, LUCA FACP CCDS Ot E78.4 OTHER HYPERLIPIDEMIA 08/26/2017 SANTINO RUIZ FACC, ALI FACP CCDS Ot I25.10 ATHSCL HEART DISEASE OF [place] CORONARY 08/26/2017 SANTINO RUIZ FACC, LUCA FACP CCDS Ot I47.2 VENTRICULAR TACHYCARDIA 08/26/2017 SANTINO RUIZ FACC, ALI FACP CCDS Ot I65.23 OCCLUSION AND STENOSIS OF BILATERAL [place] 09/04/2017 SANTINO RUIZ FACC, LUCA FACP CCDS Ot E66.9 OBESITY, UNSPECIFIED 09/04/2017 SANTINO RUIZ FACC, ALI FACP CCDS Ot G47.33 OBSTRUCTIVE SLEEP APNEA (ADULT) (PEDIATR 09/04/2017 SANTINO RUIZ FACC, LUCA FACP CCDS Ot I48.91 UNSPECIFIED ATRIAL FIBRILLATION 09/04/2017 LUCA DE MD, FACC FACP CCDS Ot Z23 ENCOUNTER FOR IMMUNIZATION 09/04/2017 LUCA DE MD, FACC FACP CCDS Ot Z68.37 BODY MASS INDEX (BMI) 37.0-37.9, ADULT 09/04/2017 LUCA DE MD, FACC FACP CCDS Ot Z79.01 DIE TESTER (CURRENT) USE OF ANTICOAGULANT 09/04/2017 SANTINO RUIZ FACC, ALI FACP CCDS Ot Z79.899 OTHER DIE TESTER (CURRENT) DRUG THERAPY 09/09/2017 SANTINO RUIZ FACC ALI FACP CCDS Ot E66.9 OBESITY, UNSPECIFIED 09/09/2017 SANTINO RUIZ FACC, ALI FACP CCDS Ot G47.33 OBSTRUCTIVE SLEEP APNEA (ADULT) (PEDIATR 09/09/2017 SANTINO RUIZ FACC, ALI FACP CCDS Ot I48.91 UNSPECIFIED ATRIAL FIBRILLATION 09/09/2017 SANTINO RUIZ FACC ALI FACP CCDS Ot Z23 ENCOUNTER FOR IMMUNIZATION 09/09/2017 SANTINO RUIZ FACC, ALI FACP CCDS Ot Z68.37 BODY MASS INDEX (BMI) 37.0-37.9, ADULT 09/09/2017 SANTINO RUIZ FACC, LUCA FACP CCDS Ot Z79.01 DIE TESTER (CURRENT) USE OF ANTICOAGULANT 09/09/2017 SANTINO RUIZ FACC, ALI FACP CCDS Ot Z79.899 OTHER ASSISTED (CURRENT) DRUG THERAPY 09/12/2017 SANTINO RUIZ FACC, ALI FACP CCDS Ot G47.33 OBSTRUCTIVE SLEEP APNEA (ADULT) (PEDIATR 09/12/2017 SANTINO RUIZ FACC, ALI FACP CCDS Ot I48.0 PAROXYSMAL ATRIAL FIBRILLATION 09/12/2017 SANTINO RUIZ FACC, ALI FACP CCDS Ot R06.83 SNORING 09/12/2017 SANTINO RUIZ FACC, ALI FACP CCDS Ot Z79.899 OTHER ASSISTED (CURRENT) DRUG THERAPY 09/16/2017 VERENICE DAVIS APRN Ot J45.909 UNSPECIFIED ASTHMA, UNCOMPLICATED Procedures There is no data. Results Test [...] blood complete blood count (hemogram) panel - 09/04/17 07:26 Blood leukocytes automated count (number/volume) 7.0 10*3/uL 4.3-11.0 Blood erythrocytes automated count (number/volume) 5.12 10*6/uL 4.35-5.85 Venous blood hemoglobin measurement (mass/volume) 16.2 g/dL 13.3-17.7 Blood hematocrit (volume fraction) 46 % 40-54 Automated erythrocyte mean corpuscular volume 90 [foz_us] 80-99 Automated erythrocyte mean corpuscular hemoglobin (mass per erythrocyte) 32 pg 25-34 Automated erythrocyte mean corpuscular hemoglobin concentration measurement ( mass/volume) 35 g/dL 32-36 Automated erythrocyte distribution width ratio 13.0 % 10.0-14.5 Automated blood platelet count (count/volume) 217 10*3/uL 130-400 Automated blood platelet mean volume measurement 9.9 [foz_us] 7.4-10.4 PT panel in platelet poor plasma by coagulation assay - 09/04/17 07:26 Prothrombin time (PT) in platelet poor plasma by coagulation assay 14.1 s 12.2-14.7 INR in platelet poor plasma or blood by coagulation assay 1.1 0.8-1.4 Activated partial thromboplastin time (aPTT) in platelet poor plasma bycoagulation assay - 09/04/17 07:26 Activated partial thromboplastin time (aPTT) in platelet poor plasma bycoagulation assay 33 s 24-35 Comprehensive metabolic panel - 09/04/17 07:26 Serum or plasma sodium measurement (moles/volume) 139 mmol/L 135-145 Serum or plasma potassium measurement (moles/volume) 4.1 mmol/L 3.6-5.0 Serum or plasma chloride measurement (moles/volume) 106 mmol/L 98-107 Carbon dioxide 22 mmol/L 21-32 Serum or plasma anion gap determination (moles/volume) 11 mmol/L 5-14 Serum or plasma urea nitrogen measurement (mass/volume) 21 mg/dL 7-18 Serum or plasma creatinine measurement (mass/volume) 1.19 mg/dL 0.60-1.30 Serum or plasma urea nitrogen/creatinine mass ratio 18 NRG Serum or plasma creatinine measurement with calculation of estimated glomerular filtration rate > NRG Serum or plasma glucose measurement (mass/volume) 131 mg/dL 70-105 Serum or plasma calcium measurement (mass/volume) 9.0 mg/dL 8.5-10.1 Serum or plasma total bilirubin measurement (mass/volume) 0.5 mg/dL 0.1-1.0 Serum or plasma alkaline phosphatase measurement (enzymatic activity/volume) 87 U/L 40-136 Serum or plasma aspartate aminotransferase measurement (enzymatic activity/ volume) 17 U/L 5-34 Serum or plasma alanine aminotransferase measurement (enzymatic activity/volume ) 28 U/L 0-55 Serum or plasma protein measurement (mass/volume) 6.5 g/dL 6.4-8.2 Serum or plasma albumin measurement (mass/volume) 4.1 g/dL 3.2-4.5 Methicillin resistant Staphylococcus aureus (MRSA) screening culture - 07:28 Methicillin resistant Staphylococcus aureus (MRSA) screening culture NEG NRG Encounters ACCT No. Visit Date/Time Discharge Status Pt. Type Provider Facility Loc./Unit Complaint [id number] 09/15/2017 07:48:00 09/15/2017 23:59:59 CLS Outpatient VERENICE DAVIS APRN [facility] RT J45.909 ASTHMA [id number] 09/04/2017 07:06:00 09/04/2017 09:04:00 DIS Outpatient SANTINO RUIZ FACC, LUCA FRASER CCDS [facility] AFIB,SOB,HTN [id number] 08/26/2017 07:02:00 08/26/2017 09:54:00 DIS Outpatient SANTINO RUIZ FACC, LUCA FRASER CCDS [facility] SOB,HTN, OBESITY [id number] 08/21/2017 08:41:00 08/21/2017 23:59:59 CLS Preadmit SOL BEVERLY DO [facility] RAD M81.0 [id number] 08/12/2017 06:59:00 08/12/2017 10:03:00 DIS Outpatient SANTINO RUIZ FACC, LUCA FRASER CCDS [facility] ATRIAL FIBRILLATION;CHRONIC ANTICOAGULATION;NATHALIA [id number] 01/03/2016 19:59:00 01/04/2016 06:15:00 DIS Outpatient SKYLAR MCCULLOUGH DO [facility] SLEEP SNORING,EXCESSIVE SLEEPINESS, [id number] 03/04/2013 18:04:00 03/04/2013 23:59:59 CLS Outpatient ISABELLA PATEL MD [facility] SLEEP [id number] 09/30/2017 08:00:00 PEN Preadmit SANTINO RUIZ FACC, LUCA FRASER CCDS [facility] NATHALIA [id number] 10/16/2015 12:04:00 ACT Inpatient CHEIKH POOLE MD [facility] CSD CHEST PAIN [id number] 01/10/2015 17:52:00 Document Registration [id number] 02/25/2011 07:48:00 Document Registration [id number] 05/02/2010 02:01:00 Document Registration
== END | disposition home or self-care (01) ==
LOC: CATH 07:19
PROVIDERS: ATTEND Internal Medicine Cardiovascular Disease
DX: Z53.9 Procedure and treatment not carried out, unspecified reason (principal)

== ENCOUNTER → 2017-10-07 | Day surgery (SDC) | payer OTHER ==
[~2017-10-07] VITALS: Ht 180.3 cm; Wt 120.2 kg
[~2017-10-07] MED LIST changes: +MIDAZOLAM 5 MG/5 ML (VERSED) VIAL ONE; +proPOfol 200 MG/20 ML (DIPRIVAN) VIAL IV ONE
--- OUTSIDE RECORDS SUMMARY | 2017-10-07 09:26 | XMS REPORT | Encounter Summary ---
Author Author [facility] Organization [facility] Address Unknown Phone Unavailable Care Team Providers Care Quarter Section Ironer Name Role Phone Arturo Means MD PCP Encounter Details Date Type Department Care Team Description 09/25/2017 Procedure Pass [facility] [address] [place] [address] Social History Tobacco Use Types Packs/Day Years Used Date Never Assessed Sex Assigned at Date Recorded Not on file as of this encounter Plan of Treatment Date Type Specialty Care Team Description 09/25/2017 Procedure Pass Cardiology as of this encounter Visit Diagnoses Not on filein this encounter
--- OUTSIDE RECORDS SUMMARY | 2017-10-07 09:26 | XMS REPORT | Clinical Summary ---
Author Author [facility] Organization [facility] Address Unknown Phone Unavailable Care Team Providers Care Equipment Lead Name Role Phone Arturo Means MD PCP Source Comments Some departments are not documenting in the electronic medical record. If you do not see the information that you expected, contact Release of Information in the Health Information Management department at [phone] for further assistance in locating additional records.[facility] Allergies Not on File Current Medications Prescription [...] Taken Blood Pressure 148/86 09/18/2017 9:49 AM DIGITAL PRINTER Pulse 109 09/18/2017 9:49 AM DIGITAL PRINTER Temperature - - Respiratory Rate - - Oxygen Saturation - - Inhaled Oxygen - - Concentration Weight 127.9 kg (282 lb) 09/18/2017 9:49 AM DIGITAL PRINTER Height 180.3 cm (5' 11") 09/18/2017 9:49 AM DIGITAL PRINTER Body Mass Index 39.33 09/18/2017 9:49 AM DIGITAL PRINTER Plan of Treatment Date Type Specialty Care Team Description 09/25/2017 Procedure Pass Cardiology Health Maintenance Due Date Last Done Comments HEPATITIS C SCREENING 1960 PHYSICAL (COMPREHENSIVE) 1967 EXAM PERTUSSIS VACCINE 1971 TETANUS VACCINE 1977 COLORECTAL CANCER 2010 SCREENING INFLUENZA VACCINE 04/08/2017 Results Not on filefrom Last 3 Months
--- OUTSIDE RECORDS SUMMARY | 2017-10-07 09:26 | XMS REPORT | Continuity of Care Document ---
Author Author [facility] Organization [facility] Address Unknown Phone Unavailable Care Team Providers Care Inspector Weights And Measures Name Role Phone [employer] Unavailable Unavailable Problems Medications Allergies, Adverse Reactions, Alerts Immunizations Results Vital Signs Encounters Location Location Details Encounter Type Encounter Number Reason For Visit Attending Provider ADM Date DC Date Status Source OUTPATIENT [id number] HARLAN WEN 09/18/2017 Active [facility] O 10/08/2017 Active [facility] OUTPATIENT [id number] 10/08/2017 Active [facility] Procedures Plan of Care Social History Assessment and Plan Family History Advance Directives Functional Status
--- OUTSIDE RECORDS SUMMARY | 2017-10-07 09:26 | XMS REPORT | Encounter Summary ---
Author Author [facility] Organization [facility] Address Unknown Phone Unavailable Care Team Providers Care Filenet Admin Name Role Phone Arturo Means MD PCP Reason for Referral * CTA Procedure Status Reason Specialty Diagnoses / Referred By Referred To Procedures Contact Contact No Auth Needed Cardiology Diagnoses Kvng Dominguez, Isabel Khan MD [address] [place] fibrillation [place], [place] ([facility]) [place] [address] [address] [address] [place], [place] Phone: [employer] [phone] [address] CARDIAC Phone: STRUCTURE WO/W [phone] CONT * CTA Procedure Status Reason Specialty Diagnoses / Referred By Referred To Procedures Contact Contact New Request Cardiology Diagnoses Kvng Dominguez, Isabel Khan MD [address] [place] fibrillation [place], [place] ([facility]) [place] [address] [address] [address] [place], [place] Phone: [employer] [phone] [address] Phone: CARDIAC [phone] Encounter Details Date Type Department Care Team Description 09/19/2017 Orders Only [facility] Kellie Agustin RN Paroxysmal atrial [address] [place] fibrillation ([facility]) [place] [address] (Primary Dx) [phone] Social History Tobacco Use Types Packs/Day Years [...]
--- OUTSIDE RECORDS SUMMARY | 2017-10-07 09:26 | XMS REPORT | Encounter Summary ---
Author Author [facility] Organization [facility] Address Unknown Phone Unavailable Care Team Providers Care Hrbp Name Role Phone Arturo Means MD PCP Reason for Referral * CTA Procedure Status Reason Specialty Diagnoses / Referred By Referred To Procedures Contact Contact No Auth Needed Cardiology Diagnoses Kvng Dominguez Bhg Card Nuclear Atrial [address] [place] fibrillation, [address] [place] [address] [place], [place] (HCC) [place] [address] [address] [address] [place] [employer], [place] Phone: [employer] [phone] [address] CARDIAC Phone: STRUCTURE WO/W [phone] CONT * CTA Procedure Status Reason Specialty Diagnoses / Referred By Referred To Procedures Contact Contact New Request Cardiology Diagnoses Kvng Dominguez Bhg Card Nuclear Atrial MD [address] fibrillation, [address] [place] unspecified [address] [place] (HCC) [place] [address] [address] [address] [place] [employer], [place] Phone: [employer] [phone] [address] Phone: CARDIAC [phone] Encounter Details Date Type Department Care Team Description 09/25/2017 Orders Only [facility] Maliha Clark, CHARANJIT Atrial fibrillation, [address] [place] unspecified type (HCC) [place] [address] (Primary Dx) [phone] Social History Tobacco Use Types Packs/Day Years [...]
--- OUTSIDE RECORDS SUMMARY | 2017-10-07 09:26 | XMS REPORT | Encounter Summary ---
Author Author [facility] Organization [facility] Address Unknown Phone Unavailable Care Team Providers Care Electrotherapist Name Role Phone Arturo Means MD PCP Encounter Details Date Type Department Care Team Description 09/26/2017 Telephone [facility] Cardiology Val Lunsford, RN [address] [place], [place] [id number] Social History Tobacco Use Types Packs/Day Years Used Date Never Assessed Sex Assigned at Date Recorded Not on file as of this encounter Plan of Treatment Date Type Specialty Care Team Description 09/25/2017 Procedure Pass Cardiology as of this encounter Visit Diagnoses Not on filein this encounter
--- OUTSIDE RECORDS SUMMARY | 2017-10-07 09:27 | XMS REPORT | Encounter Summary ---
Author Author [facility] Organization [facility] Address Unknown Phone Unavailable Care Team Providers Care Reimbursement Spec Name Role Phone Arturo Means MD PCP Reason for Visit * Reason Comments New Patient Atrial Fibrillation, Sleep Apnea; Ref by Dr. Flannery Encounter Details Date Type Department Care Team Description 09/18/2017 Office Visit [facility] Cardiology Kvng Dominguez MD New Patient (Atrial [address] Fibrillation, Sleep [address] [place] [address] Apnea; [place] [address] [place] [address] [place] Delia) [phone] Social History Tobacco Use Types Packs/Day Years Used Date Never Assessed Sex Assigned at Date Recorded Not on file as of this encounter Last Filed Vital Signs Vital Sign Reading Time Taken Blood Pressure 148/86 09/18/2017 9:49 AM CITIZENSHIP INSTRUCTOR Pulse 109 09/18/2017 9:49 AM CITIZENSHIP INSTRUCTOR Temperature - - Respiratory Rate - - Oxygen Saturation - - Inhaled Oxygen - - Concentration Weight 127.9 kg (282 lb) 09/18/2017 9:49 AM CITIZENSHIP INSTRUCTOR Height 180.3 cm (5' 11") 09/18/2017 9:49 AM CITIZENSHIP INSTRUCTOR Body Mass Index 39.33 09/18/2017 9:49 AM CITIZENSHIP INSTRUCTOR in this encounter Instructions * Patient Instructions - Val Lunsford RN - 09/18/2017 10:30 AM CITIZENSHIP INSTRUCTOR will schedule you for Atrial Fibrillation Ablation [...] to arrange cardioversion maurilio on return from [place] reduce diltiazem to 240 mg daily TWO [...] Kvng Dominguez MD - 09/18/2017 10:30 AM CITIZENSHIP INSTRUCTOR Formatting of this note may be different from the original. Date of Service: 09/18/2017 Kolby Rea is a 57 y.o. male. HPI I had the pleasure of seeing your patient Kolby Rea in the [facility] as a part of the [facility] Card[facility] office today for initial Electrophysiolgy Consultation regarding his Persistent Atrial Fibrillation. He is typically followed and was referred by my partner Dr. Jose, his primary customer contact representative. Mr. Rea is an exceptionally pleasant 57 y.o. male, who is accompanied by his equally pleasant spouse, Jami. 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 All data in this note, including the [...] home. He is taking a trip to [place] on Friday for one week. He denies [...] to include, but not limited to, , [place], stroke, cardiac perforation, pulmonary vein stenosis, diaphragmatic [...] that time. --Since he is going to [place] on Friday he will contact Dr. Jose's [...] And asked him to follow-up with his president & ceo regarding his CPAP settings. --Elevated BP: As [...]
--- OUTSIDE RECORDS SUMMARY | 2017-10-07 09:27 | XMS REPORT | Encounter Summary ---
Author Author [facility] Organization [facility] Address Unknown Phone Unavailable Care Team Providers Care Per Diem Physical Therapist Assistant Name Role Phone Arturo Means MD PCP Reason for Visit * Reason Comments Other CTA requested,orders placed Encounter Details Date Type Department Care Team Description 09/19/2017 Telephone [facility] Cardiology Kellie Agustin, CHARANJIT Other (CTA [address] [place] requested,orders placed) [place] [address] Social History Tobacco Use Types Packs/Day Years Used Date Never Assessed Sex Assigned at Date Recorded Not on file as of this encounter Miscellaneous Notes * Telephone Encounter - Kellie Agustin RN - 09/19/2017 10:52 AM TRAINING DEVELOPMENT DIRECTOR ----- Message from Val Lunsford RN sent at 09/18/2017 12:38 PM TRAINING DEVELOPMENT DIRECTOR ----- Regarding: pre ablation ccta Dr Dominguez pre atrial fibrillation ablation (date pending) FYI his insurance changes on 10/09/17 will need PAT same day and possibly OV casx Val in this encounter Plan of Treatment Date Type Specialty Care Team Description 09/25/2017 Procedure Pass Cardiology as of this encounter Visit Diagnoses Not on filein this encounter
--- OUTSIDE RECORDS SUMMARY | 2017-10-07 09:27 | XMS REPORT | Encounter Summary ---
Author Author [facility] Organization [facility] Address Unknown Phone Unavailable Care Team Providers Care Acquisition Editor Name Role Phone PCP Unavailable Reason for Visit * Reason Comments Appointment Request LM requesting CB Encounter Details Date Type Department Care Team Description 08/26/2017 Telephone [facility] Cardiology Cristina Hines, CHARANJIT Appointment Request ([facility] [address] requesting CB) [address] [place] [address] Social History Tobacco Use Types Packs/Day Years Used Date Never Assessed Sex Assigned at Date Recorded Not on file as of this encounter Miscellaneous Notes * Telephone Encounter - Cristina Hines, CHARANJIT - 08/26/2017 9:52 AM ELDERLY SITTER LM requesting CB regarding referral to [facility]. [...]
--- OUTSIDE RECORDS SUMMARY | 2017-10-07 09:27 | XMS REPORT | Encounter Summary ---
Author Author [facility] Organization [facility] Address Unknown Phone Unavailable Care Team Providers Care Drilling Foreman Name Role Phone Arturo Means MD PCP Reason for Visit * Reason Comments Records Request Dr. Arturo Means Encounter Details Date Type Department Care Team Description 08/27/2017 Documentation [facility] Cardiology Cristina Hines, RN Records Request ( [address]) [address] [place] [address] Social History Tobacco Use Types Packs/Day Years Used Date Never Assessed Sex Assigned at Date Recorded Not on file as of this encounter Progress Notes * Cristina Hines, RN - 08/27/2017 9:44 AM MEXICAN FOOD MAKER Request for the following medical records for purpose of continuity of care: Has an appointment with [facility] on 09/18/16 Please send most recent OV note and labs. Please Fax to: [facility] Cardiology - [phone] Dr. Dominguez Attention: Val Browne RN Thank you in this encounter Plan of Treatment Date Type Specialty Care Team Description 09/25/2017 Procedure Pass Cardiology as of this encounter Visit Diagnoses Not on filein this encounter
--- OUTSIDE RECORDS SUMMARY | 2017-10-07 09:27 | XMS REPORT | Encounter Summary ---
Author Author [facility] Organization [facility] Address Unknown Phone Unavailable Care Team Providers Care Vehicle Washer Name Role Phone PCP Unavailable Reason for Visit * Reason Comments Records Request Dr. Jessica Jose Encounter Details Date Type Department Care Team Description 08/26/2017 Documentation [facility] Cardiology Cristina Hines, RN Records Request (Dr. Lopez [address]) [address] [place] [address] Social History Tobacco Use Types Packs/Day Years Used Date Never Assessed Sex Assigned at Date Recorded Not on file as of this encounter Progress Notes * Cristina Hines, CHARANJIT - 08/26/2017 9:53 AM BUSINESS CONTROL MANAGER Request for the following medical records for purpose of continuity of care: Has an appointment with [facility] on 09/18/2016 Please send most recent OV note, EKGs and lab results. Please include ECHO, stress test, Holter monitor results with ECG strips and any other cardiac information / testing if available. Please also include facesheet and insurance information. Please Fax to: [facility] Cardiology - [phone] Dr. Dominguez Attention: Val Rodriguez RN Thank you in this encounter Plan of Treatment Date Type Specialty Care Team Description 09/25/2017 Procedure Pass Cardiology as of this encounter Visit Diagnoses Not on filein this encounter
--- OUTSIDE RECORDS SUMMARY | 2017-10-07 09:27 | XMS REPORT | Encounter Summary ---
Author Author [facility] Organization [facility] Address Unknown Phone Unavailable Care Team Providers Care Foam Caster Name Role Phone Arturo Means MD PCP Encounter Details Date Type Department Care Team Description 09/18/2017 Documentation [facility] Luis Looney [address] [place] [address] Social History Tobacco Use Types Packs/Day Years Used Date Never Assessed Sex Assigned at Date Recorded Not on file as of this encounter Plan of Treatment Date Type Specialty Care Team Description 09/25/2017 Procedure Pass Cardiology Name Priority Associated Diagnoses Date/Time 25-OH VITAMIN D (D2 + D3) Routine 07/17/2017 12:00 AM PHYSICAL THERAPY PROFESSOR GLUCOSE, RANDOM Routine 07/17/2017 12:00 AM PHYSICAL THERAPY PROFESSOR ALT (SGPT) Routine 07/17/2017 12:00 AM PHYSICAL THERAPY PROFESSOR C REACTIVE PROT-HI SENSITIVITY Routine 07/17/2017 12:00 AM PHYSICAL THERAPY PROFESSOR CBC Routine 09/18/2017 12:00 AM PHYSICAL THERAPY PROFESSOR COMPREHENSIVE METABOLIC PANEL Routine 09/18/2017 12:00 AM PHYSICAL THERAPY PROFESSOR as of this encounter Visit Diagnoses Not on filein this encounter
--- OUTSIDE RECORDS SUMMARY | 2017-10-07 09:27 | XMS REPORT | Encounter Summary ---
Author Author [facility] Organization [facility] Address Unknown Phone Unavailable Care Team Providers Care Jointer Machine Operator Name Role Phone PCP Unavailable Reason for Visit * Reason Comments Referral Dr. Lemon referral to [facility] for AF Encounter Details Date Type Department Care Team Description 08/26/2017 Telephone [facility] Cardiology Kvng Dominguez MD Referral (Dr. Lemon [id number] referral to [facility] for AF) [address] [place] [address] [place] [address] [phone] Social History Tobacco Use Types Packs/Day Years Used Date Never Assessed Sex Assigned at Date Recorded Not on file as of this encounter Miscellaneous Notes * Telephone Encounter - Cristina Hines RN - 08/26/2017 9:51 AM INFECTION PREVENTION SPECIALIST Kolby Rea is a 56-year-old patient that was referred by Dr. Jessica Jose from [facility] who has a history of atrial fibrillation, sleep apnea, mild obesity. The duration of the patient's AFIB on presentation which was a few months ago is on now. Dr. Jose saw him for evaluation he initiated rate control and anticoagulation. He then pursued TONYA guided cardioversion. The patient had moravian of sinus rhythm very briefly in the [...] try and see his patients in the [place] office to get him worked in earlier he will need to be seen at the [facility] office. We will contact the patient today to hopefully schedule the appointment. The patient's phone number is [phone]. The patient's 's name is Jami and her phone number is [phone]. in this encounter Plan of Treatment Date Type Specialty Care Team Description 09/25/2017 Procedure Pass Cardiology as of this encounter Visit Diagnoses Not on filein this encounter
--- OUTSIDE RECORDS SUMMARY | 2017-10-07 09:28 | XMS REPORT | Continuity of Care Document ---
Author Author [facility] Organization [facility] Address Unknown Phone Unavailable Allergies Active Description Code Type Severity Reaction Onset Reported/Identified Relationship to Patient Clinical Status Yes No Known Drug Allergies [id number] Drug Allergy Unknown N/A 05/02/2010 Medications There [...] CHEIKH R Ot R00.2 PALPITATIONS 10/17/2015 VIRGILIO RUZI, CHEIKH R Ot R07.89 OTHER CHEST PAIN [...] FACC, LUCA ORTEGAP CCDS Ot Z79.899 OTHER TRANSPORT ASSISTANT (CURRENT) DRUG THERAPY 08/18/2017 LUCA DE MD, FACC FACP CCDS Ot G47.33 OBSTRUCTIVE SLEEP APNEA (ADULT) (PEDIATR 08/18/2017 SANTINO RUIZ FACC, ALI FACP CCDS Ot I48.0 PAROXYSMAL ATRIAL FIBRILLATION 08/18/2017 SANTINO RUIZ FACC, ALI FACP CCDS Ot R06.83 SNORING 08/18/2017 SANTINO RUIZ FACC, ALI FACP CCDS Ot Z79.899 OTHER [facility] (CURRENT) DRUG THERAPY 08/26/2017 SANTINO RUIZ FACC, LUCA FACP CCDS Ot E78.4 OTHER HYPERLIPIDEMIA 08/26/2017 SANTINO RUIZ FACC, ALI FACP CCDS Ot I25.10 ATHSCL HEART DISEASE OF [place] CORONARY 08/26/2017 SANTINO RUIZ FACC, LUCA FACP [...] DE MD, FACC FACP CCDS Ot Z79.01 TRANSPORT ASSISTANT (CURRENT) USE OF ANTICOAGULANT 09/04/2017 SANTINO RUIZ FACC, ALI FACP CCDS Ot Z79.899 OTHER TRANSPORT ASSISTANT (CURRENT) DRUG THERAPY 09/09/2017 SANTINO RUIZ FACC [...] (BMI) 37.0-37.9, ADULT 09/09/2017 SANTINO RUIZ FACC, ALI FACP CCDS Ot Z79.01 TRANSPORT ASSISTANT (CURRENT) USE OF ANTICOAGULANT 09/09/2017 SANTINO RUIZ FACC, ALI FACP CCDS Ot Z79.899 OTHER [facility] (CURRENT) DRUG THERAPY 09/12/2017 SANTINO RUIZ FACC, ALI FACP CCDS Ot G47.33 OBSTRUCTIVE SLEEP APNEA (ADULT) (PEDIATR 09/12/2017 SANTINO RUIZ FACC, ALI FACP CCDS Ot I48.0 PAROXYSMAL ATRIAL FIBRILLATION 09/12/2017 SANTINO RUIZ FACC, ALI FACP CCDS Ot R06.83 SNORING 09/12/2017 SANTINO RUIZ FACC, ALI FACP CCDS Ot Z79.899 OTHER [facility] (CURRENT) DRUG THERAPY 09/16/2017 VERENICE DAVIS APRN Ot J45.909 UNSPECIFIED ASTHMA, UNCOMPLICATED 10/01/2017 SANTINO RUIZ FACC, ALI FACP CCDS Ot Z53.9 PROCEDURE AND TREATMENT NOT CARRIED OUT, Procedures There is no data. Results Test [...] resistant Staphylococcus aureus (MRSA) screening culture NEG [facility] Automated blood complete blood count (hemogram) panel [...] Status Pt. Type Provider Facility Loc./Unit Complaint [id number] 09/30/2017 07:19:00 09/30/2017 23:59:59 CLS Outpatient SANTINO RUIZ FACC, LUCA FACP CCDS [facility] NATHALIA [id number] 09/15/2017 07:48:00 09/15/2017 23:59:59 CLS Outpatient VERENICE DAVIS APRN [facility] RT J45.909 ASTHMA [id number] 09/04/2017 07:06:00 09/04/2017 09:04:00 DIS Outpatient SANTINO RUIZ FACC, LUCA FACP CCDS [facility] AFIB,SOB,HTN [id number] 08/26/2017 07:02:00 08/26/2017 09:54:00 DIS Outpatient SANTINO RUIZ FACC, LUCA FACP CCDS [facility] SOB,HTN, OBESITY [id number] 08/21/2017 08:41:00 08/21/2017 23:59:59 CLS Preadmit SOL BEVERLY DO [facility] RAD M81.0 [id number] 08/12/2017 06:59:00 08/12/2017 10:03:00 DIS Outpatient SANTINO RUIZ FACC, LUCA FACP CCDS [facility] ATRIAL FIBRILLATION;CHRONIC ANTICOAGULATION;NATHALIA [id number] 01/03/2016 19:59:00 01/04/2016 06:15:00 DIS Outpatient SKYLAR MCCULLOUGH DO [facility] SLEEP SNORING,EXCESSIVE SLEEPINESS, [id number] 03/04/2013 18:04:00 03/04/2013 23:59:59 CLS Outpatient ISABELLA PATEL MD [facility] SLEEP [id number] 10/07/2017 08:00:00 PEN Preadmit SANTINO RUIZ FACC, LUCA FACP CCDS [facility] ATRIAL FIBRILLATION,NATHALIA [id number] 10/16/2015 12:04:00 ACT Inpatient VIRGILIO RUIZ, CHEIKH Sutton [facility] CSD CHEST PAIN [id number] 01/10/2015 17:52:00 Document Registration [id number] 02/25/2011 07:48:00 Document Registration [id number] 05/02/2010 02:01:00 Document Registration
[2017-10-07 09:53] VITALS: BP 144/83
[2017-10-07 10:18] LABS: HEMOGLOBIN 17.6 G/DL (13.3-17.7); MEAN PLATELET VOLUME 9.8 FL (7.4-10.4); RED BLOOD COUNT 5.48 10^6/uL (4.35-5.85); RED CELL DISTRIBUTION WIDTH 13.5 % (10.0-14.5); WHITE BLOOD COUNT 6.6 10^3/uL (4.3-11.0)
[2017-10-07 10:21] LABS: INR 1.1 (0.8-1.4); PROTHROMBIN TIME PATIENT 14.6 SEC (12.2-14.7)
[2017-10-07 10:27] LABS: ALANINE AMINOTRANSFERASE 30 U/L (0-55); ALBUMIN 4.3 GM/DL (3.2-4.5); ALKALINE PHOSPHATASE 83 U/L (40-136); BILIRUBIN,TOTAL 0.9 MG/DL (0.1-1.0); BUN/CREATININE RATIO 13; CALCIUM 9.5 MG/DL (8.5-10.1); CARBON DIOXIDE 22 MMOL/L (21-32); CHLORIDE 104 MMOL/L (98-107); CREATININE SERUM 1.05 MG/DL (0.60-1.30); GFR ESTIMATED > 60; GLUCOSE 130 MG/DL (70-105); POTASSIUM 4.4 MMOL/L (3.6-5.0); SODIUM 137 MMOL/L (135-145)
[2017-10-07 10:53] VITALS: BP 98/86
[2017-10-07 10:58] VITALS: BP 122/104
[2017-10-07 11:03] VITALS: BP 122/90
--- NOTE | 2017-10-07 11:03 | Anesthesia-Procedure Note ---
Procedure Start/Stop Time Date of Procedure: Oct 07, 2017 Start Time: 10:50 Referring Physician: Damon Preprocedural Diagnosis: A-Fib Stop Time: 10:57 Procedures/Interventions Procedures Called to [facility] for cardioversion. Spoke with patient. Brief history obtained. Pt sedated for procedure with 100mg propofol total. Tolerated procedure well. VSS. Spontaneous resp maintained throughout. Care to [facility] RN. BHUPINDER REYES CRNA Oct 07, 2017 11:03
[2017-10-07 11:05] VITALS: BP 132/86
[2017-10-07 11:29] VITALS: BP 134/82
--- NOTE | 2017-10-07 16:29 | OPERATIVE REPORT ---
DATE OF SERVICE: 10/07/2017 PREOPERATIVE DIAGNOSIS: Paroxysmal atrial fibrillation. POSTOPERATIVE DIAGNOSIS: Normal sinus rhythm. PROCEDURE: External electrical cardioversion. The patient is a 57-year-old gentleman with atrial fibrillation. He has been on treatment with propafenone for rhythm control and on apixaban for stroke prophylaxis. Today, he comes in for electrical cardioversion in an effort to restore sinus rhythm. Short-acting anesthesia was administered by the nurse senior nurse manager. We carried out electrical cardioversion with a 150 joules synchronized biphasic shock, but this was unsuccessful. We then tried 200 joules synchronized biphasic shock through the external pads. This restored sinus rhythm. Job ID: [id number] DocumentID: [id number] Dictated Date: 10/07/2017 11:05:03 Medical Lab Director Date: 10/07/2017 16:28:10 Dictated By: LUCA DE MD, MA, FACP, FACC,
== END | disposition home or self-care (01) ==
LOC: CATH 09:23
PROVIDERS: ATTEND Internal Medicine Cardiovascular Disease
DX: I48.0 Paroxysmal atrial fibrillation (principal); J45.909 Unspecified asthma, uncomplicated; G47.33 Obstructive sleep apnea (adult) (pediatric); E66.9 Obesity, unspecified; Z68.37 Body mass index [BMI] 37.0-37.9, adult; Z79.01 Long term (current) use of anticoagulants; Z79.899 Other long term (current) drug therapy
CPT/HCPCS: 36415; 80053; 85027; 85610; 85730; 87081; 92960; 93005

== ENCOUNTER 2023-05-07 05:40 | Outpatient (CLI) | payer BC ==
[~2023-05-07] VITALS: Ht 180.3 cm; Wt 129.9 kg
[~2023-05-07 05:40] MED LIST changes: -MIDAZOLAM 5 MG/5 ML (VERSED) VIAL ONE; -NS IV 1000 ML 1,000 ML IV SCH; -NS IV 1000 ML 1,000 ML ONE; -proPOfol 200 MG/20 ML (DIPRIVAN) VIAL IV ONE
== END 2023-05-08 10:07 | disposition home or self-care (01) ==
LOC: PREOP 05:40
PROVIDERS: ATTEND Surgery
DX: Z01.818 Encounter for other preprocedural examination (principal)

== ENCOUNTER 2023-05-20 07:31 | Day surgery (SDC) | payer BC, OTHER ==
[~2023-05-20] VITALS: Ht 180.3 cm; Wt 129.9 kg
[2023-05-20] MEDS ORDERED: LACTATED RINGERS 1,000 ML 1,000 ML IV STA (07:49)
[2023-05-20 08:34] VITALS: BP 141/90
[2023-05-20] MEDS ORDERED: MIDAZOLAM INJ 2 MG/2 ML VIAL ONE (09:10)
--- NOTE | 2023-05-20 09:35 | Discharge Inst-Simple/Standard ---
Discharge Inst-Standard Patient Instructions/Follow Up Plan of Care/Instructions/FU: 2 weeks elaine Activity as Tolerated: Yes Discharge Diet: Regular Diet RIO UREÑA DO May 20, 2023 09:35
[2023-05-20 09:38] VITALS: BP 137/77
--- NOTE | 2023-05-20 09:38 | Progress Note-Post Operative ---
Post-Operative Progess Note Surgeon (s)/Binding Dyer (s) Surgeon RIO UREÑA DO Binding Dyer: NA Pre-Operative Diagnosis screening colonoscopy Post-Operative Diagnosis rectal polyp Procedure & Operative Findings Date of Procedure 05/20/23 Procedure Performed/Findings Colonoscopy with snare polypectomy Anesthesia Type per RN OCCUPATIONAL HEALTH Estimated Blood Loss Estimated blood loss (mL): none Specimens/Packing Specimens Removed rectal polyp RIO UREÑA DO May 20, 2023 09:38
[2023-05-20 09:43] VITALS: BP 136/75
[2023-05-20 09:45] VITALS: BP 142/84
[2023-05-20 10:20] VITALS: BP 142/84
--- NOTE | 2023-05-20 12:04 | Anesthesia-General Post-Op ---
MAC Patient Condition Mental Status/LOC: Same as Preop Cardiovascular: Satisfactory Nausea/Vomiting: Absent Respiratory: Satisfactory Pain: Controlled Complications: Absent Post Op Complications Complications None Follow Up Care/Instructions Patient Instructions None needed. Anesthesiology Discharge Order Discharge Order Patient is doing well, no complaints, stable vital signs, no apparent adverse anesthesia problems. No complications reported per nursing. REGINA CORONA CRNA May 20, 2023 12:04
--- NOTE | 2023-05-20 18:08 | OPERATIVE REPORT ---
DATE OF SERVICE: 05/20/2023 PREOPERATIVE DIAGNOSIS: Screening colonoscopy. POSTOPERATIVE DIAGNOSIS: Rectal polyp. PROCEDURE: Colonoscopy with snare polypectomy. SURGEON: Rio Hernandez DO ANESTHESIA: Per LABORATORY CUREMAN. ESTIMATED BLOOD LOSS: None. COMPLICATIONS: None. INDICATIONS: The patient is a 62-year-old male, needing screening colonoscopy. He understands risks and benefits of procedure and wished to proceed. Consent was signed in chart. DESCRIPTION OF PROCEDURE: The patient was taken to endoscopy suite, placed in left lateral recumbent position. Timeout was performed. Digital rectal exam was performed. No palpable polyps, masses or ulcerations. Scope was inserted in the rectum and advanced all the way to the cecum with minimal difficulty. Prep was adequate. Scope was slowly retracted back. No polyps, masses or ulcerations in the cecum, ascending, transverse, descending and sigmoid colon. In the rectum, a small polyp was present, which snare polypectomy was performed. Scope was retroflexed noting no other pathology. Scope was returned to its normal position, slowly withdrawn until completely removed. The patient tolerated the procedure well without complications, taken to recovery room in stable condition. RECOMMENDATIONS: The patient will need repeat colonoscopy in 5 years. Any issues before that, be seen at that time. A followup on pathology in 2 weeks. Job ID: [id number] DocumentID: [id number] Dictated Date: 05/20/2023 09:38:16 Computer Repair Instructor Date: 05/20/2023 18:05:00 Dictated By: RIO HERNANDEZ DO
== END 2023-05-20 10:20 | disposition home or self-care (01) ==
LOC: ENDO 07:31
PROVIDERS: ATTEND Surgery
DX: Z12.11 Encounter for screening for malignant neoplasm of colon (principal); K62.1 Rectal polyp; E66.9 Obesity, unspecified; G47.33 Obstructive sleep apnea (adult) (pediatric); E11.9 Type 2 diabetes mellitus without complications; Z79.85 Long-term (current) use of injectable non-insulin antidiabetic drugs; Z68.39 Body mass index [BMI] 39.0-39.9, adult; Z79.84 Long term (current) use of oral hypoglycemic drugs
CPT/HCPCS: 82947